=== PATIENT | male | born 1945 | race Two or more races ===

== ENCOUNTER 2025-01-31 22:12 | Emergency (ER) | payer OTHER, SELFPAY ==
--- NOTE | ~2025-01-31 | XR_ITS ---
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 Lateral clavicle deformity appears old. [id number] osteoarthritis of the right glenohumeral joint without dislocation. Inferior glenoid irregularities with small osteophytes. Small Hill-Sachs deformity of the imaged humerus of the adjacent subchondral cystic changes. Atelectasis in the [id number]-[id number]. Small effusion suggested. IMPRESSION: 1. No acute fracture or dislocation. 2. 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 3. 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 This document has been electronically signed by: Nick Wong MD on 02/01/2025 00:14:32
--- NOTE | 2025-01-31 22:25 | ED_ITS ---
HPI - Fall General Chief Complaint: Fall Stated Complaint: FALL, -THIN, LOC, HS, +COLLAR PER EMS Time Seen by Provider: 01/31/25 22:20 Source: patient Mode of arrival: ambulatory Limitations: no limitations History of Present Illness ED Provider: HPI Narrative: Apparently [place] the [place] stumble on rocks fell landed on his left knee and chest no significant head injury no loss of consciousness patient walked to the fire station and came by ambulance y,ambulatory as with small abrasion to the left knee does have a chronic shoulder pain Related Data Allergies Allergy/AdvReac Type Severity Reaction Status Date / Time Penicillins Allergy Rash Verified 01/31/25 22:52 Review of Systems Review of Systems: Yes all other systems are reviewed and are negative [facility], [facility] Social History Social History Smoked in Last 30 Days: No Use of substances other than those prescribed or required for medical reasons: No Advance Directives: No Advance Directives Information Provided: Yes Do you have a plan to hurt others: No Plan Physical Exam Vital Signs: Vital Signs: Last Vital Signs Temp 98.0 F 01/31/25 23:52 Pulse 73 01/31/25 23:52 Resp 18 01/31/25 23:52 BP 142/71 H 01/31/25 23:52 Pulse Ox 95 01/31/25 23:52 O2 Del Method Room Air 01/31/25 23:52 BMI result Body Mass Index 26.3 Appearance: Alert. Oriented X3. No acute distress. Eyes: PERRLA, No Nystagmus ENT: Pharynx normal. Oral Mucosa moist Neck: Normal inspection. Neck supple. No midline tenderness CVS: Normal heart rate and rhythm. Pulses normal. Respiratory: No respiratory distress. Equal air entry bilateral, no wheezing/rales/rhonchi Abdomen: Soft and nontender. Bowel sounds are present, no mass palpable, no CVA tenderness Skin: Skin warm and dry. Normal skin color. Normal skin turgor. Extremities: No lower extremity edema. No calf tenderness right shoulder limited abduction and external rotation no deformity neurovascular intact left knee superficial abrasion no effusion good range of movement Neuro: Oriented X 3. No motor deficit. No sensory deficit.No cerebellar signs , cranial nerves II-XII intact Medications Administered Discontinued Medications Generic Name Dose Route Start Last Admin Trade Name Freq PRN Reason Stop Dose Admin Bacitracin 1 appl 01/31/25 22:27 01/31/25 22:51 Bacitracin Oint 0.9 Gm Packet TOPICAL 01/31/25 22:28 1 appl ONCE ONE Administration Protocol Medical Decision Making Medical Decision Making MDM Narrative: patient no significant injury ambulatory in the ED will discharge patient home shoulder x-ray was done which was negative Independent Interpretation I performed an independent interpretation of an: Plain X-Ray Interpretation: no fracture Discharge Plan Discharge Clinical Impression: Fall Patient Disposition: Home, Self-Care Instructions: Fall Prevention for Older Adults (ED) Additional Instructions: Care and cautions as advised Interventions: ED Discharge Assessment Last Done: 01/31/25 23:52 Discharge Date/Time: 01/31/25 23:54 Print Language: Yoruba
[2025-01-31 22:28] VITALS: BP 150/80; PULSE 85; O2SAT 100
[2025-01-31 22:51] VITALS: BP 128/68; PULSE 76; RESP 18; TEMP 37.1; O2SAT 98; BMI 26.3
[2025-01-31] MEDS: Bacitracin Oint 0.9 GM PACKET 1 APPL TOPICAL (22:51)
--- NOTE | 2025-01-31 22:59 | PC.NURSE ---
pt brought in via ems s/p fall- pt cleared from c-collar by MD Nathan on arrival, abrasions on leftknee and ankle cleasned with NS- patted dry, followed by bacitracin, nonstick, kerlix and tape. pt awaiting XR results of right shoulder- call pak within reach
--- OUTSIDE RECORDS SUMMARY | 2025-01-31 23:28 | XMS_ITS | Encounter Summary ---
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 Name Role Phone Ewelina Hargrove PA-C Primary Care Provider Reason for Visit * Reason Comments Correspondence Encounter Details Date Type Department Care Team (Late st Contact Info) Description 08/01/2023 Interim Notes [facility] [address] [place] [phone] [facility] [place], [place] [address] [place] [address] Social History Tobacco Use Types Packs/Day Years Used Date Smoking Tobacco: Never Smokeless Tobacco: Never Alcohol Use Standard Drinks/Week Comments No 0 (1 standard drink = 0.6 oz pur e alcohol) Social Connections Answer Date Recorded Social Connections and Isolation 0 07/13/2019 Financial Resource Strain Answer Date R ecorded Financial Resource Strain 0 2018 Stress Answer Date Recorded Stress 0 07/13/2019 Physical Activity Answer Date Recorded Physical Activity 0 07/13/2019 Food Insecurity Answer Date Recorded Food 0 07/13/2019 Transportation Needs Answer Date Record ed Transportation 0 07/13/2019 Housing Stability Answer Date Recorded Housing 0 07/13/2019 Safety and Environment Answer Date Claude rded Safety 0 07/13/2019 Utilities Answer Date Recorded Utilities 0 07/13/2019 Employment Answer Date Recorded Employment 0 07/13/2019 Sex and Gender Information Value Date Recorded Sex Assigned at Male 01/07/2018 7:11 AM PST Legal Sex Male 8:29 AM PDT Gender Identity Male 01/07/2018 7:11 AM PST Sexual Orientation Straight 06/02/2018 6: 01 AM PDT COVID-19 Exposure Response Date Recorded In the last 10 days, have cr u been in contact with someone who was confirmed or suspected to have Coronavirus/COVID-19? No / Unsure 07/30/2023 3:51 PM EDT documented as of this encounter Plan of Treatment Upcoming Encounters Date Type Department Care Team (Late st Contact Info) Description 02/01/2025 10:00 AM EDT Telemedicine Visit [facility] [address] [place] [phone] Ewelina Hargrove PA-C [address] [place] [address] Jael Bee [address] [place] [address] documented as of this encounter Goals Goal Patient Goal Type Associated Problems Recent Progress Patient-Stated? Author Blood Pressure < 130/80 Blood Pressure Essential hypertension 126/62(2024 11:16 AM EST) No Gricelda Arredondo, PharmD documented as of this encounter Visit Diagnoses Not on filedocumented in this encounter Additional Health Concerns Assessment Noted Time PHQ-9 Depression Total Score: 14 023 4:13 PM PDT documented as of this encounter Care Teams Wood [employer] Relationship Specialty Start Date End Date Ewelina Hargrove PA-C [facility] [place] [address] PCP - General Primary Care 06/01/24 documented as of this encounter
--- OUTSIDE RECORDS SUMMARY | 2025-01-31 23:29 | XMS_ITS | Clinical Summary ---
Author Organization [facility] Address [address] [place] [address] Phone Care Team Providers Care Electrical Engineer Mep Name Role Phone Cristina Gold Primary Care Provider [phone] Allergies Active Allergy Reactions Criticality Noted Date Comments Penicillin Unknown 09/26/2023 Penicillin G 10/13/2024 Penicillins Anaphylaxis,Itching High 06/19/2016 Medications No known medications Encounters Date Type Department Care Team Description 01/09/2025 10:44 AM EST - 01/09/2025 2:35 PM EST Emergency [facility] [address] [place] [phone] Chronic right shoulder pain (Primary Dx) Discharge Disposition: Home or Self Care 01/07/2025 9:45 AM EST Office Visit Orthopedic Surgery [facility] [address] [facility] [address] [place] [phone] Charlie Samuels, DPM Dermatophytosis of nail (Primary Dx); Wheezing; Bilateral foot pain; Pain in toe of right foot; Pain in toe of left foot; 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); Diabetic mononeuropathy simplex (CMS/HCC); Metatarsalgia of both feet; Hammer toe of left foot; Acquired hammer toe of right foot; Primary osteoarthritis of both feet 12/19/2024 8:28 AM EST - 12/19/2024 10:51 AM EST Emergency [facility] [address] [place] [phone] Bang Perkins MD Vertigo (Primary Dx) Discharge Disposition: Home or Self Care 12/11/2024 6:00 PM EST - 12/11/2024 9:02 PM EST Emergency [facility] [address] [place] [phone] Dizziness (Primary Dx) Discharge Disposition: Home or Self Care from Last 3 Months Surgical History Surgery Date Site/Laterality Comments NECK SURGERY Medical History Medical History Date Comments Depression Hypertension Diabetes mellitus ([facility]) Social History Tobacco Use Types Packs/Day Years Used Date Smoking Tobacco: Never Smokeless Tobacco: Never Tobacco Cessation:Counseling Given: Not Answered Alcohol Use Standard Drinks/Week Comments Never 0 (1 standard drink = 0.6 oz pur e alcohol) Sex and Gender Information Value Date Recorded Sex Assigned at Male 12/11/2024 6:50 PM EST Legal Sex Male 11:06 PM EST Gender Identity Male 12/11/2024 6:50 PM EST Sexual Orientation Not on file Obstetrics History Last Filed Vital Signs Vital Sign Reading Time Taken Comments Blood Pressure 126/74 01/09/2025 10:20 AM EST Pulse 78 01/09/2025 10:20 AM EST Temperature 36.6 ??C (97.9 ??F) 01/09/2025 10:[address] Respiratory Rate 16 01/09/2025 10:20 AM EST Oxygen Saturation 94% 01/09/2025 10:20 AM EST Inhaled Oxygen Concentration - - Weight 75.8 kg (167 lb) 01/09/2025 10:20 AM EST Height 165.1 cm (5' 5 ) 01/09/2025 10:20 AM EST Body Mass Index 27.79 01/09/2025 10:20 AM EST Plan of Treatment Upcoming Encounters Date Type Department Care Team (Late st Contact Info) Description 04/06/2025 9:45 AM EDT Office Visit Orthopedic Surgery - [place] [address] [phone] Charlie Samuels, DPM [address] [address] Health Maintenance Due Date Last Done Comments Diabetes: Annual Foot Exam 1955 Diabetes: Annual Retina Eye Exam 1955 Falls Risk Assessment 10/28/2022 Hepatitis C Screening 10/28/2022 Medicare Annual Wellness Visit 10/28/2022 Social Influencers of Health Screening 10/28/2022 RSV Immunization Patients 60+ Years Old (1 - 1-dose 75+ series) 2022 COVID-19 Vaccine (3 - season) 2024 03/04/2021, 01/28/2021 Diabetes: Annual Urine Albumin-Creatinine Ratio (uACR) 10/13/2024 09/26/2023, 02/09/2021, 07/04/2020 Zoster Vaccines (2 of 2) 01/19/2025 11/24/2024 Depression Screening 04/02/2025 04/02/2024 Diabetes: Blood Sugar Control Test (HGBA1C) 05/24/2025 11/24/2024, 04/02/2024 Diabetes: Annual GFR (Glomerular Filtration Rate) 12/19/2025 12/19/2024, 12/11/2024, 11/24/2024, Additional history exists Hypertension/CHF/CAD Annual BMP Blood Test 12/19/2025 12/19/2024, 12/11/2024, 11/24/2024, Additional history exists Cholesterol Screening (Lipid Panel) 11/24/2029 11/24/2024, 11/24/2024, 09/26/2023, Additional history exists DTaP,Tdap,and Td Vaccines (3 - Td or Tdap) 07/20/2033 07/20/2023, 02/19/2017 Pneumococcal Vaccine: 50+ Years Completed 04/30/2018, 02/19/2017, 09/10/2006 Influenza Vaccine Completed 11/24/2024, , 11/01/2017 HIB Vaccines Aged Out No longer eligi ble based on patient's age to complete this topic HPV Vaccines Aged Out No longer eligi ble based on patient's age to complete this topic Hepatitis A Vaccines Aged Out No long er eligible based on patient's age to complete this topic Hepatitis B Vaccines Aged Out No long er eligible based on patient's age to complete this topic IPV Vaccines Aged Out No longer eligi ble based on patient's age to complete this topic MMR Vaccines Aged Out No longer eligi ble based on patient's age to complete this topic Meningococcal ACWY Vaccine Aged Out N o longer eligible based on patient's age to complete this topic Meningococcal B Vacine Aged Out No lo nger eligible based on patient's age to complete this topic RSV Immunization Patients Under 20 months Aged Out No longer eligible based on patient's age to complete this topic Varicella Vaccines Aged Out No longer eligible based on patient's age to complete this topic Procedures Procedure Name Priority Date/Time Associated Diagnosis Comments ECG ANNOTATED 01/11/2025 ECG 12-LEAD STAT 01/09/2025 12:22 PM EST XR SHOULDER 2+ VIEWS RIGHT STAT 01/09/2025 11:36 AM EST XR CHEST 2 VIEWS STAT 01/09/2025 11:3 6 AM EST [id number], RSV, FLU A AND B QUALITATIVE RT-PCR, INTERNAL LAB STAT 01/09/2025 11:16 AM EST CBC WITH AUTO DIFFERENTIAL STAT 12/19/2024 4:28 AM EST LIPASE STAT 12/19/2024 4:28 AM EST COMPREHENSIVE METABOLIC PANEL STAT 12/19/2024 4:28 AM EST CBC AND DIFFERENTIAL STAT 12/19/2024 4:28 AM EST TROPONIN I HIGH SENSITIVITY STAT 12/11/2024 8:[address] HEAD WO CONTRAST STAT 12/11/2024 7 :16 PM EST TROPONIN I HIGH SENSITIVITY STAT 12/11/2024 6:40 PM EST CBC WITH AUTO DIFFERENTIAL STAT 12/11/2024 6:40 PM EST MAGNESIUM STAT 12/11/2024 6:40 PM EST BASIC METABOLIC PANEL STAT 12/11/2024 6:40 PM EST CBC AND DIFFERENTIAL STAT 12/11/2024 6:40 PM EST ECG 12-LEAD STAT 12/11/2024 4:54 PM EST POCT GLUCOSE BLOOD Routine 12/11/2024 4: 40 PM EST ECG ANNOTATED 12/11/2024 from Last 3 Months Results * ECG-Annotated (01/11/2025) Only the most recent of2 resultswithin the time period is included. us Provider Onbase MD ECG ORDERABLES Final Result * ECG 12 lead (01/09/2025 12:22 PM EST) Only the most recent of2 resultswithin the time period is included. Ventricular Rate ECG 66 BPM GEMUSE Atrial Rate 66 BPM GEMUSE P-R Interval 164 ms GEMUSE QRS Duration 82 ms GEMUSE Q-T Interval 400 ms GEMUSE QTc 419 ms GEMUSE P Wave [place] 66 degrees GEMUSE R [place] 57 degrees GEMUSE T [place] 52 degrees GEMUSE ECG Interpretation Normal sinus rhythm Normal ECG When compared with ECG of 11-DEC-2024 16:54, No significant change was found Confirmed by SHELDON CORONADO ([id number]) on 01/10/2025 6:14:56 PM GEMUSE 01/09/2025 12:2 2 PM EST 01/10/2025 6:14 PM EST us Bhavani KRUSE ECG ORDERABLES Final Re sult GEMUSE * XR Shoulder 2+ Views Right (01/09/2025 11:36 AM EST) Anatomical Region Laterality Modality Upper Extremities, Shoulder Right Radi ographic Imaging 01/09/2025 12:2 0 PM EST Impressions 01/09/2025 12:21 PM EST FINDINGS/IMPRESSION: Significant degenerative changes of the glenohumeral and acromioclavicular joint. ??No acute fracture or dislocation. ??Possible prior Hill-Sachs deformity and irregularity of the inferior glenoid. -------- FINAL REPORT -------- Dictated By: Cruz Edmondson Dictated Date: 01/09/2025 12:20 ET Assigned Physician: Cruz Edmondson Reviewed and Electronically Signed By: Cruz Edmondson Signed Date: 01/09/2025 12:21 ET Workstation ID: [id number] Transcribed By: Self Edit Transcribed Date: 01/09/2025 12:20 ET Narrative 01/09/2025 12:21 PM EST XR SHOULDER 2+ VIEWS RIGHT INDICATION: pain TECHNIQUE: XR SHOULDER 2+ VIEWS RIGHT COMPARISON: No priors available. Procedure Note Cruz Edmondson MD - 01/09/2025 XR SHOULDER 2+ VIEWS RIGHT INDICATION: pain TECHNIQUE: XR SHOULDER 2+ VIEWS RIGHT COMPARISON: No priors available. IMPRESSION: FINDINGS/IMPRESSION: Significant degenerative changes of the glenohumeraland acromioclavicular joint. No acute fracture or dislocation. Possibleprior Hill- Sachs deformity and irregularity of the inferior glenoid. -------- FINAL REPORT -------- Dictated By: Cruz Edmondson Dictated Date: 01/09/2025 12:20 ET Assigned Physician: Cruz Edmondson Reviewed and Electronically Signed By: Cruz Edmondson Signed Date: 01/09/2025 12:21 ET Workstation ID: [id number] Transcribed By: Self Edit Transcribed Date: 01/09/2025 12:20 ET us Bhavani KRUSE IMG XR PROCEDURES Final Result * XR Chest 2 Views (01/09/2025 11:36 AM EST) Anatomical Region Laterality Modality Body Radiographic Naida ging 01/09/2025 12:1 7 PM EST Impressions 01/09/2025 12:18 PM EST FINDINGS/IMPRESSION: No significant change compared to prior examination. Normal heart size and pulmonary vascularity. ??Lungs are clear and costophrenic angles are sharp. ??No acute osseous abnormality.. -------- FINAL REPORT -------- Dictated By: Cruz Edmondson Dictated Date: 01/09/2025 12:17 ET Assigned Physician: Cruz Edmondson Reviewed and Electronically Signed By: Cruz Edmondson Signed Date: 01/09/2025 12:18 ET Workstation ID: [id number] Transcribed By: Self Edit Transcribed Date: 01/09/2025 12:17 ET Narrative 01/09/2025 12:18 PM EST XR CHEST 2 VIEWS INDICATION: wheezing TECHNIQUE: XR CHEST 2 VIEWS COMPARISON: No priors available. Procedure Note Cruz Edmondson MD - 01/09/2025 XR CHEST 2 VIEWS INDICATION: wheezing TECHNIQUE: XR CHEST 2 VIEWS COMPARISON: No priors available. IMPRESSION: FINDINGS/IMPRESSION: No significant change compared to priorexamination. Normal heart size and pulmonary vascularity. Lungs are clear andcostophrenic angles are sharp. No acute osseous abnormality.. -------- FINAL REPORT -------- Dictated By: Cruz Edmondson Dictated Date: 01/09/2025 12:17 ET Assigned Physician: Cruz Edmondson Reviewed and Electronically Signed By: Crzu Edmondson Signed Date: 01/09/2025 12:18 ET Workstation ID: [id number] Transcribed By: Self Edit Transcribed Date: 01/09/2025 12:17 ET Bhavani KRUSE IMG XR PROCEDURES Final Result * [id number], RSV, Influenza A and B qualitative RT-PCR (01/09/2025 11:16 AM EST) Influenza A PCR Not Detected Not Detected LAB MICROBIOLOGY METHOD 01/09/2025 12:11 PM EST [facility] Influenza B PCR Not Detected Not Detected LAB MICROBIOLOGY METHOD 01/09/2025 12:11 PM EST [facility] RSV PCR Not Detected Not Detected LAB MICROBIOLOGY METHOD 01/09/2025 12:11 PM EST [facility] SARS COV-2 Not Detected Not Detected LAB MICROBIOLOGY METHOD 01/09/2025 12:11 PM EST [facility] Swab Both anterior nares / Unknown Non-blood Collection / Unknown 01/09/2025 11:16 AM EST 01/09/2025 11:30 AM EST [facility]ative [facility] - 01/09/2025 12:11 PM EST Disclaimer: ??Testing was performed using the Symphony GeneXpert Xpress SARS-CoV-2 _Flu_RSV PLUS PCR assay. ??The manner in which this information is used to guide patient care is the responsibility of the healthcare provider. ??Results should be correlated with the clinical history, epidemiological data, and other data available to the clinician evaluating the patient. ??Negative results do not preclude infection. ??This test has been authorized by the FDA under an Emergency Use Authorization (EUA). ??This test is only authorized for the duration of time the declaration that circumstances exist justifying the authorization of the emergency use of in vitro diagnostic tests for detection of SARS-CoV-2 virus and/or diagnosis of COVID-19 infection under section 564 (b) (1) of the Act, 21 U.S.C 360bbb-3 (b) (1), unless the authorization is terminated or revoked sooner. ?? Reference Range: Not Detected Fact sheet for Healthcare providers can be found at https://www.fda.gov/media/670462/download. ?? Fact sheet for Healthcare patients can be found at https://www.fda.gov/media/863313/download. us Bhavani KRUSE LAB MICROBIOLOGY - GENER AL ORDERABLES Final Result [facility] [address] [place] [address], * (ABNORMAL) CBC auto differential (12/19/2024 4:28 AM EST) Only the most recent of2 resultswithin the time period is included. Pathologist [facility] WBC 6.5 4.8 - 10.8 K/mcL LAB HEMETOLOGY METHOD 12/19/2024 4:39 AM [facility] RBC 4.60 4.50 - 5.50 M/mcL LAB HEMETOLOGY METHOD 12/19/2024 4:39 AM [facility] Hemoglobin 12.4(L) 13.5 - 17.5 g/dL LAB HEMETOLOGY METHOD 12/19/2024 4:39 AM [facility] Hematocrit 39.9(L) 42.0 - 54.0 % LAB HEMETOLOGY METHOD 12/19/2024 4:39 AM [facility] MCV 86.4 79.0 - 98.0 FL LAB HEMETOLOGY METHOD 12/19/2024 4:39 AM [facility] MCH 26.8(L) 27.0 - 32.0 pcg LAB HEMETOLOGY METHOD 12/19/2024 4:39 AM [facility] MCHC 31.1(L) 32.0 - 37.0 g/dL LAB HEMETOLOGY METHOD 12/19/2024 4:39 AM [facility] RDW 12.8 11.0 - 15.0 % LAB HEMETOLOGY METHOD 12/19/2024 4:39 AM [facility] Platelets 296 130 - 400 K/mcL LAB HEMETOLOGY METHOD 12/19/2024 4:39 AM [facility] MPV 8.6 7.0 - 11.0 FL LAB HEMETOLOGY METHOD 12/19/2024 4:39 AM [facility] NRBC 0.0 <1.0 % LAB HEMETOLOGY METHOD 12/19/2024 4:39 AM [facility] NRBC Absolute 0.00 <0.10 K/mcL LAB HEMETOLOGY METHOD 12/19/2024 4:39 AM [facility] Neutrophils Relative 73.5 % LAB HEMETOLOGY METHOD 12/19/2024 4:39 AM [facility] Lymphocytes Relative 15.7 % LAB HEMETOLOGY METHOD 12/19/2024 4:39 AM [facility] Monocytes Relative 6.5 % LAB HEMETOLOGY METHOD 12/19/2024 4:39 AM [facility] Eosinophils Relative 3.4 % LAB HEMETOLOGY METHOD 12/19/2024 4:39 AM [facility] Basophils Relative 0.6 % LAB HEMETOLOGY METHOD 12/19/2024 4:39 AM [facility] Immature Granulocytes Relative 0.3 % LAB HEMETOLOGY METHOD 12/19/2024 4:39 AM [facility] Neutrophils Absolute 4.78 1.50 - 7.00 K/mcL LAB HEMETOLOGY METHOD 12/19/2024 4:39 AM [facility] Lymphocytes Absolute 1.02 1.00 - 5.00 K/mcL LAB HEMETOLOGY METHOD 12/19/2024 4:39 AM [facility] Monocytes Absolute 0.42 0.20 - 1.00 K/mcL LAB HEMETOLOGY METHOD 12/19/2024 4:39 AM [facility] Eosinophils Absolute 0.22 0.00 - 0.50 K/mcL LAB HEMETOLOGY METHOD 12/19/2024 4:39 AM [facility] Basophils Absolute 0.04 0.00 - 0.20 K/mcL LAB HEMETOLOGY METHOD 12/19/2024 4:39 AM [facility] Immature Granulocytes Absolute 0.02 0.00 - 0.03 K/mcL LAB HEMETOLOGY METHOD 12/19/2024 4:39 AM [facility] Blood Venous blood specimen / Unknown Venipuncture / Unknown 12/19/2024 4:28 AM EST 12/19/2024 4:33 AM EST Pam Bay MD LAB BLOOD ORDERABLES Fin al Result Performing Organization Address City/[facility]/ZIP Co de Phone Number [facility] [address] [place] [address], [place] [phone] * Lipase (12/19/2024 4:28 AM EST) Lipase 37 13 - 75 unit/L LAB CHEMISTRY METHOD 12/19/2024 5:08 AM [facility] Blood Venous blood specimen / Unknown Venipuncture / Unknown 12/19/2024 4:28 AM EST 12/19/2024 4:33 AM EST Pam Bay MD LAB BLOOD ORDERABLES Fin al Result Performing Organization Address [facility] Co de Phone Number [facility] [address] [place] [address], [place] [phone] * (ABNORMAL) Comprehensive metabolic panel (12/19/2024 4:28 AM EST) Pathologist [facility] Sodium 137 133 - 145 mmol/L LAB CHEMISTRY METHOD 12/19/2024 5:08 AM [facility] Potassium 3.6 3.5 - 5.5 mmol/L LAB CHEMISTRY METHOD 12/19/2024 5:08 AM [facility] Chloride 104 96 - 110 mmol/L LAB CHEMISTRY METHOD 12/19/2024 5:08 AM [facility] CO2 28 21 - 32 mmol/L LAB CHEMISTRY METHOD 12/19/2024 5:08 AM [facility] Anion Gap 5 3 - 11 LAB CHEMISTRY METHOD 12/19/2024 5:08 AM [facility] Glucose 153(H) 70 - 100 mg/dL LAB CHEMISTRY METHOD 12/19/2024 5:08 AM [facility] BUN 12 5 - 25 mg/dL LAB CHEMISTRY METHOD 12/19/2024 5:08 AM [facility] Creatinine 0.68(L) 0.70 - 1.30 mg/dL LAB CHEMISTRY METHOD 12/19/2024 5:08 AM [facility] eGFR 96 >=60 mL/min/1. 73m2 LAB CHEMISTRY METHOD 12/19/2024 5:08 AM [facility] Comment:Calculation based on the??Chronic Kidney Disease Epidemiology Collaboration (CKD-EPI) equation refit??without adjustment for race. BUN/Creatinine Ratio 17.6 LAB CHEMISTRY METHOD 12/19/2024 5:08 AM [facility] Calcium 9.0 8.5 - 10.5 mg/dL LAB CHEMISTRY METHOD 12/19/2024 5:08 AM [facility] AST (SGOT) 13 10 - 42 unit/L LAB CHEMISTRY METHOD 12/19/2024 5:08 AM [facility] ALT (SGPT) 16 10 - 60 unit/L LAB CHEMISTRY METHOD 12/19/2024 5:08 AM [facility] Alkaline Phosphatase 125(H) 42 - 121 unit/L LAB CHEMISTRY METHOD 12/19/2024 5:08 AM [facility] Total Protein 7.5 6.0 - 8.0 g/dL LAB CHEMISTRY METHOD 12/19/2024 5:08 AM [facility] Albumin 3.9 3.2 - 5.0 g/dL LAB CHEMISTRY METHOD 12/19/2024 5:08 AM [facility] Total Bilirubin 1.2 0.0 - 1.4 mg/dL LAB CHEMISTRY METHOD 12/19/2024 5:08 AM [facility] Blood Venous blood specimen / Unknown Venipuncture / Unknown 12/19/2024 4:28 AM EST 12/19/2024 4:33 AM EST us Pam Bay MD LAB BLOOD ORDERABLES Fin al Result [facility] [address] [place] [address], [place] [phone] * Troponin I high sensitivity (12/11/2024 8:03 PM EST) Only the most recent of2 resultswithin the time period is included. High Sensitivity Troponin I 43 <=79 ng/L LAB CHEMISTRY METHOD 12/11/2024 8:52 PM EST [facility] Blood Venous blood specimen / Unknown Venipuncture / Unknown 12/11/2024 8:03 PM EST 12/11/2024 8:19 PM EST Narrative [facility] - 12/11/2024 8:52 PM EST High levels of biotin in samples may falsely decrease hsTroponin values. ??Use caution when interpreting hsTroponin results in patients taking biotin who exhibit renal impairment (eGFR <60) or in patients taking more than 20 mg/day of biotin. Darshan KRUSE LAB BLOOD ORDERABLES Final R esult Performing Organization Address [facility] Co de Phone Number [facility] [address] [place] [address], [place] [phone] * CT Head wo Contrast (12/11/2024 7:16 PM EST) Anatomical Region Laterality Modality Head and Neck Computed Tomogra phy 12/11/2024 7:39 PM EST Impressions 12/11/2024 7:39 PM EST Impression: 1. No acute intracranial abnormalities. This document has been electronically signed by: Miles Brooks MD on 12/11/2024 19:39:05 Narrative 12/11/2024 7:[address] head without contrast Comparison: None Findings: No intracranial mass, midline shift, hydrocephalus, or acute hemorrhage. No CT evidence of acute ischemia. Minimal chronic microangiopathic white matter ischemic changes are present. Visualized paranasal sinuses and mastoid air cells normal. Orbits unremarkable. No skull fracture Procedure Note Miles Brooks MD - 12/11/2024 CT head without contrast Comparison: None Findings: No intracranial mass, midline shift, hydrocephalus, or acute hemorrhage. No CT evidence of acute ischemia. Minimal chronic microangiopathic white matter ischemic changes are present. Visualized paranasal sinuses and mastoid air cells normal. Orbits unremarkable. No skull fracture IMPRESSION: Impression: 1. No acute intracranial abnormalities. This document has been electronically signed by: Miles Brooks MD on 12/11/2024 19:39:[address] PROCEDURES Final Resu lt * Magnesium (12/11/2024 6:40 PM EST) Pathologist [facility] Magnesium 2.1 1.9 - 2.6 mg/dL LAB CHEMISTRY METHOD 12/11/2024 7:36 PM EST [facility] Blood Venous blood specimen / Unknown Venipuncture / Unknown 12/11/2024 6:40 PM EST 12/11/2024 7:00 PM EST Thompson Stein DO LAB BLOOD ORDERABLES Final Resu lt [facility] [address] [place] [address], * (ABNORMAL) Basic metabolic panel (12/11/2024 6:40 PM EST) Pathologist [facility] Sodium 140 133 - 145 mmol/L LAB CHEMISTRY METHOD 12/11/2024 7:36 PM EST [facility] Potassium 4.0 3.5 - 5.5 mmol/L LAB CHEMISTRY METHOD 12/11/2024 7:36 PM EST [facility] Chloride 106 96 - 110 mmol/L LAB CHEMISTRY METHOD 12/11/2024 7:36 PM EST [facility] CO2 30 21 - 32 mmol/L LAB CHEMISTRY METHOD 12/11/2024 7:36 PM EST [facility] Anion Gap 4 3 - 11 LAB CHEMISTRY METHOD 12/11/2024 7:36 PM EST [facility] Glucose 103(H) 70 - 100 mg/dL LAB CHEMISTRY METHOD 12/11/2024 7:36 PM EST [facility] BUN 15 5 - 25 mg/dL LAB CHEMISTRY METHOD 12/11/2024 7:36 PM [facility] Creatinine 0.66(L) 0.70 - 1.30 mg/dL LAB CHEMISTRY METHOD 12/11/2024 7:36 PM EST [facility] eGFR 97 >=60 mL/min/1. 73m2 LAB CHEMISTRY METHOD 12/11/2024 7:36 PM [facility] Comment:Calculation based on the??Chronic Kidney Disease Epidemiology Collaboration (CKD-EPI) equation refit??without adjustment for race. BUN/Creatinine Ratio 22.7 LAB CHEMISTRY METHOD 12/11/2024 7:36 PM [facility] Calcium 9.5 8.5 - 10.5 mg/dL LAB CHEMISTRY METHOD 12/11/2024 7:36 PM [facility] Blood Venous blood specimen / Unknown Venipuncture / Unknown 12/11/2024 6:40 PM EST 12/11/2024 7:00 PM EST Thompson Stein DO LAB BLOOD ORDERABLES Final Resu lt [facility] [address] [place] [address], * (ABNORMAL) POCT Glucose, blood (12/11/2024 4:40 PM EST) Glucose POCT 107(H) 70 - 100 mg/dL 12/11/2024 4:41 PM EST [facility] Blood Capillary blood specimen / Unknown 12/11/2024 4:40 PM EST 12/11/2024 4:42 PM EST us Generic Provider Poct LAB POINT OF CARE TEST DOCKED DEVICE UNSOLICITED RESULTS Final Result [facility] [address] [place] [address], from Last 3 Months Insurance [facility] MEDICARE Member Subscriber Plan / Payer (Ef fective 2022-Present) Name:Barak Giordano Relation to Subscriber:Self Name:Barak Giordano Payer ID:[id number] Group ID:[id number] Type:Not on file [address] [address] Care Teams Electrical Engineer Mep Relationship Specialty Start Date End Date Cristina Gold FNP [address] [place] [phone] PCP - General Internal Medicine 05/08/22
--- OUTSIDE RECORDS SUMMARY | 2025-01-31 23:29 | XMS_ITS | Encounter Summary ---
Author Organization [facility] Address [address] [place] [address] Care Team Providers Care [employer] Name Role Phone Ewelina Hargrove PA-C Primary Care Provider [phone] Reason for Referral * Orthopedics (Urgent) - Authorized Specialty Diagnoses / Procedures Referred By Yolanda t Referred To Contact Orthopedics Diagnoses Acute pain of both knees Vika Ash FNP [address] [place] [phone] Phone: tel: fax: Orthopedics, [place] [address] [address] [place], [place] Phone: tel: fax: Referral ID Status Reason Start Date Expiration Date Visits Requested Visits Authorized [id number] Authorized Evaluate and Treat 01/28/2025 01/28/2026 1 1 Comments Evaluation of subacute right knee effusion, exacerbation after fall. Seeking walk in clinic Valdemar Velasquez Reason for Visit * Reason Comments Leg Pain Foot Pain Encounter Details Date Type Department Care Team (Late st Contact Info) Description 01/28/2025 11:00 AM EST Office Visit [facility] [address] [place] [address] Vika Ash FNP [address] [place] [address] Clau Castano [address] [place] [address] Acute pain of both knees (Primary Dx); Fall, initial encounter Social History Tobacco Use Types Packs/Day Years Used Date Smoking Tobacco: Never Smokeless Tobacco: Never Tobacco Cessation:Counseling Given: Not Answered Alcohol Use Standard Drinks/Week Comments No 0 (1 standard drink = 0.6 oz pur e alcohol) Social Connections Answer Date Recorded Connectedness 0 08/12/2024 Financial Resource Strain Answer Date R ecorded Financial Resource Strain 0 2018 Stress Answer Date Recorded Stress 0 07/13/2019 Physical Activity Answer Date Recorded Physical Activity 0 07/13/2019 Food Insecurity Answer Date Recorded Food 0 08/20/2024 Transportation Needs Answer Date Record ed Transportation 0 07/13/2019 Housing Stability Answer Date Recorded Housing 0 07/13/2019 Safety and Environment Answer Date Claude rded Safety 0 07/13/2019 Utilities Answer Date Recorded Utilities 0 07/13/2019 Employment Answer Date Recorded Stress 0 08/12/2024 Sex and Gender Information Value Date Recorded Sex Assigned at Male 01/07/2018 7:11 AM PST Legal Sex Male 8:29 AM PDT Gender Identity Male 01/07/2018 7:11 AM PST Sexual Orientation Straight 06/02/2018 6: 01 AM PDT documented as of this encounter Last Filed Vital Signs Vital Sign Reading Time Taken Comments Blood Pressure 126/62 01/28/2025 11:16 AM EST Pulse 71 01/28/2025 11:16 AM EST Temperature 36.8 ??C (98.3 ??F) 01/28/2025 11:[address] Respiratory Rate 16 01/28/2025 11:16 AM EST Oxygen Saturation 98% 01/28/2025 11:16 AM EST Inhaled Oxygen Concentration - - Weight 72.6 kg (160 lb) 01/28/2025 11:16 AM EST Height 157.5 cm (5' 2 ) 01/28/2025 11:16 AM EST Body Mass Index 29.26 01/28/2025 11:16 AM EST documented in this encounter Progress Notes * CRUZ Workman - 01/28/2025 11:29 AM EST Images from the original note were not included. CC: Leg Pain and Foot Pain Interpreting services by Clau Castano ([place]yan) interpreted for today's visit. were utilized during this visit. Interpreting service provided in person. HPI Barak Giordano presents today for Leg Pain and Foot Pain Accompanied by his LOCKSTITCHER He reports fall last week on the side walk after tripping on the stone, landing on bilateral knees.Reports dizziness p/t fall as well. States dizziness is chronic and had full negative work up. He reports pain, swelling and abrasion to his knees. He denies head strike or LOC. Shares swelling to right knee is chronic X 1 month but increased after the fall. He was otherwise asymptomatic at time offall. Now with trouble with ambulation, painful and limping. REVIEW OF SYSTEMS: Remainder ROS: See HPI, systems reviewed and are otherwise negative or noncontributory. Allergies Allergen Reactions Penicillins Anaphylaxis Patient Active Problem List Diagnosis Chronic right shoulder pain H/O: gout Essential hypertension DM (diabetes mellitus), type 2 with neurological complications ([facility]) Onychomycosis Corneal abrasion, left Psychophysiological insomnia Mixed hyperlipidemia Closed nondisplaced fracture of left great toe with routine healing Mild persistent asthma without complication Moderate major depression, single episode ([facility]) Heel spur Intermittent chest pain Intermittent headache B12 deficiency H/O complete eye exam Podiatry visit, routine Peripheral neuropathy Current Outpatient Medications Medication Sig Dispense Refill DAILY-TRACY, WITH FOLIC ACID, 400 mcg tab TAKE 1 TABLET BY MOUTH ONCE DAILY 90 Tablet 3 acetaminophen (TYLENOL) 500 mg tablet TAKE 1 TABLET BY MOUTH EVERY 6 HOURS NEEDED FOR PAIN 120 Tablet 0 amLODIPine (NORVASC) 10 mg tablet Take 1 Tablet by mouth once daily 90 Tablet 1 atorvastatin (LIPITOR) 20 mg tablet Take 1 Tablet by mouth once daily 90 Tablet 1 carbamide peroxide (DEBROX) 6.5 % otic solution Place 10 Drops into the right ear 2 (two) times daily 15 mL 0 metFORMIN XR (GLUCOPHAGE-XR) 500 mg 24 hr tablet Take 2 Tablets by mouth once daily with breakfast 180 Tablet 1 MISCELLANEOUS MEDICAL SUPPLY [facility] by miscellaneous route daily. Rolling walker with 4 wheels, seat,and brakes. Lifetime need. Dx R26.2 1 Each 0 blood sugar diagnostic strips 1 Each daily. One touch ultra 2 test strips. Check FBS daily E11.65. 100 Each 11 MISCELLANEOUS MEDICAL SUPPLY [facility] Nebulizer Machine. Use nebulizer with current medication ever 4-6hours as needed for shortness of breath 1 Each 0 nebulizer accessories Nebulizer mask and tubing. Lifetime need. Use daily as needed. 1 Each 2 lancets Check FBS daily E11.65. Freestyle Lite 100 Each 11 albuterol (PROVENTIL) 2.5 mg /3 mL (0.083 %) nebulizer solution INHALE THE CONTENT OF 1 VIAL (3mls)VIA NEBULIZER EVERY 6 HOURS NEEDED FOR WHEEZING 150 mL 2 alcohol swabs Check FBS daily E11.65. 100 Each 11 blood sugar diagnostic (FREESTYLE TEST) strips Check FBS daily E11.65. Freestyle Lite 100 Each 11 budesonide-formoteroL (SYMBICORT) 160-4.5 mcg/actuation inhaler Inhale 2 Puffs into the lungs 2 (two) times daily 10.2 g 5 cyanocobalamin (VITAMIN B-12) 1,000 mcg tablet Take 1 Tablet by mouth once daily 90 Tablet 3 diclofenac sodium (VOLTAREN) 1 % gel Apply topically 2 (two) times daily 100 g 2 escitalopram (LEXAPRO) 10 mg tablet Take 1 Tablet by mouth once daily 90 Tablet 1 VENTOLIN HFA 90 mcg/actuation inhaler INHALE 2 PUFF BY MOUTH EVERY 4 HOURS NEEDED FOR WHEEZING 18 g 5 [facility] Diabetic shoes with custom inserts. Use daily as needed. Lifetimeneed. 2 Each 2 [facility] Recliner chair for foot/leg numbness problem secondary to diabetes. Pt is 5' 5 167lbs today. 1 each for lifetime. 1 Each 0 lidocaine (LMX) 4 % cream Apply topically as needed for pain 28 g 1 cane Use as needed for walking. Lifetime need. W19.XXXA. M54.42 G89.29. 1 Each 0 blood-glucose meter (ONETOUCH ULTRA2 METER) monitoring kit Use daily to monitor blood sugar. E11.8 1 Each 0 nebulizer and compressor Use daily as needed for asthma. 1 Each 0 ibuprofen 800 mg tablet Take 1 Tablet by mouth 3 (three) times daily as needed for pain 90 Tablet 0 blood-glucose meter monitoring kit Check FBS daily E11.65. Freestyle Lite 1 Each 0 blood pressure monitor Check BP BID and record readings. Dx I10.0 Lifetime need. 1 Kit 0 blood pressure kit med and lrg Take blood pressure 2 times daily and write down measurements so that they can be reviewed by your health care provider . 1 Kit 0 compression stocking Compression stockings, knee high, 20-30 mmHg. Lifetime need. Dx: R60.0 2 Each 0 No current facility-administered medications for this visit. Depression Screenin04/02/2024 9:41 AM How many times in the past year have you had 4 or more drinks in a day? NONE How many times in the past year have you used a recreational drug or used a prescription medicationfor nonmedical reasons? NONE Did patient decline PHQ screening? No Little interest or pleasure in doing things Not at all Feeling down, depressed or hopeless [include irritable if under 18] Not at all PHQ2 Score 0 Little interest or pleasure in doing things Not at all Feeling down, depressed or hopeless [include irritable if under 18] Not at all Trouble falling or staying asleep, or sleeping too much Not at all Feeling tired or having little energy Not at all Poor appetite or overeating Not at all Feeling bad about yourself - or that you are a failure or have let yourself or your family down Notat all Trouble concentrating on things like school work, reading or watching TV? Not at all Moving or speaking so slowly that other people could have noticed? Or the opposite - being so fidgety or restless that you have been moving around a lot more than usual Not at all Thoughts you would be better off or of hurting yourself in some way Not at all If you checked off any problems, how difficult have these problems made it for you to do your work,take care of things at home, or get along with other people? Not difficult at all PHQ-9 Total Score (Auto Calculated) 0 Depression Severity: None-minimal Objective: Vitals: Blood pressure 126/62, pulse 71, temperature 98.3 ??F (36.8 ??C), temperature source Oral, resp. rate 16, height 5' 2 (1.575 m), weight 160 lb (72.6 kg), SpO2 98%. Physical Exam Vitals reviewed. Constitutional: General: He is not in acute distress. Appearance: Normal appearance. He is not ill-appearing. HENT: Head: Normocephalic. Cardiovascular: Rate and Rhythm: Normal rate and regular rhythm. Pulses: Normal pulses. Heart sounds: No murmur heard. Pulmonary: Effort: Pulmonary effort is normal. No respiratory distress. Breath sounds: Normal breath sounds. No stridor. No wheezing, rhonchi or rales. Chest: Chest wall: No tenderness. Musculoskeletal: Right knee: Swelling and effusion present. No erythema, ecchymosis or lacerations. Decreased range of motion. Tenderness present. Left knee: No lacerations. Normal range of motion. Tenderness present. Legs: Comments: Right knee warm to touch Neurological: General: No focal deficit present. Mental Status: He is alert and oriented to person, place, and time. Mental status is at baseline. Gait: Gait normal. Psychiatric: Mood and Affect: Mood normal. Behavior: Behavior normal. Judgment: Judgment normal. Depression screen: PHQ-9 Total Score (Auto Calculated) 0 at 04/02/2024 9:41 AM 04/02/2024 9:41 AM How many times in the past year have you had 4 or more drinks in a day? NONE How many times in the past year have you used a recreational drug or used a prescription medicationfor nonmedical reasons? NONE Did patient decline PHQ screening? No Little interest or pleasure in doing things Not at all Feeling down, depressed or hopeless [include irritable if under 18] Not at all PHQ2 Score 0 Little interest or pleasure in doing things Not at all Feeling down, depressed or hopeless [include irritable if under 18] Not at all Trouble falling or staying asleep, or sleeping too much Not at all Feeling tired or having little energy Not at all Poor appetite or overeating Not at all Feeling bad about yourself - or that you are a failure or have let yourself or your family down Notat all Trouble concentrating on things like school work, reading or watching TV? Not at all Moving or speaking so slowly that other people could have noticed? Or the opposite - being so fidgety or restless that you have been moving around a lot more than usual Not at all Thoughts you would be better off or of hurting yourself in some way Not at all If you checked off any problems, how difficult have these problems made it for you to do your work,take care of things at home, or get along with other people? Not difficult at all PHQ-9 Total Score (Auto Calculated) 0 Depression Severity: None-minimal Assessment/Plan: M25.561,M25.562 Acute pain of both knees (primary encounter diagnosis) Plan : REFERRAL TO ORTHOPEDICS KNEES BILATERAL 3 VIEWS X-RAY W19.XXXA Fall, initial encounter -Swelling noted to right knee, ongoing X one month. Advised walk in ortho evaluation for potential arthrocentesis of right knee. XR ordered. Advised supportive care and activity as tolerated. Education on fall prevention. Follow up after results. documented in this encounter Miscellaneous Notes * Patient Instructions - CRUZ Workman - 01/28/2025 11:45 AM EST Walk in clinic [address] [facility] If you are not able to keep your appointment please call 24-48 hours before your appointment to cancel or reschedule. documented in this encounter Plan of Treatment Upcoming Encounters Date Type Department Care Team (Late st Contact Info) Description 02/01/2025 10:00 AM EDT Telemedicine Visit [facility] [address] [place] [address] Ewelina Hargrove PA-C [address] [place] [address] Jael Bee [address] [place] [address] Scheduled Orders Name Type Priority Associated Diagnoses Orde r Schedule KNEES BILATERAL 3 VIEWS X-RAY Imaging Routine Acute pain of both knees Ordered: 01/28/2025 Scheduled Referrals Name Type Priority Associated Diagnoses Orde r Schedule REFERRAL TO ORTHOPEDICS Referral Urgent Acute pain of both knees Ordered: 01/28/2025 documented as of this encounter Goals Goal Patient Goal Type Associated Problems Recent Progress Patient-Stated? Author Blood Pressure < 130/80 Blood Pressure Essential hypertension 126/62(2024 11:16 AM EST) No Gricelda Arredondo, PharmD documented as of this encounter Visit Diagnoses Diagnosis Acute pain of both knees- Primary Fall, initial encounter documented in this encounter Additional Health Concerns Assessment Noted Time PHQ-9 Depression Total Score: 0 04/02/20 24 9:41 AM PDT documented as of this encounter Care Teams [employer] Relationship Specialty Start Date End Date Ewelina Hargrove PA-C [facility] [place] [address] PCP - General Primary Care 06/01/24 documented as of this encounter
--- OUTSIDE RECORDS SUMMARY | 2025-01-31 23:29 | XMS_ITS | Encounter Summary ---
Author Organization [place] [address] Care Team Providers Care Geriatric Nursing Assistant Name Role Phone Cristina Gold [facility] Primary Care Provider [phone]- [phone] Reason for Visit * Reason Comments Shoulder Pain Encounter Details Date Type Department Care Team (Late st Contact Info) Description 01/09/2025 10:44 AM EST - 01/09/2025 2:35 PM EST Emergency [facility] Emergency [address] [place] [address] Chronic right shoulder pain (Primary Dx) Discharge Disposition: Home or Self Care Social History Tobacco Use Types Packs/Day Years Used Date Smoking Tobacco: Never Smokeless Tobacco: Never Alcohol Use Standard Drinks/Week Comments Never 0 (1 standard drink = 0.6 oz pur e alcohol) Sex and Gender Information Value Date Recorded Sex Assigned at Male 12/11/2024 6:50 PM EST Legal Sex Male 11:06 PM EST Gender Identity Male 12/11/2024 6:50 PM EST Sexual Orientation Not on file documented as of this encounter Last Filed [...] Mass Index 27.79 01/09/2025 10:20 AM EST documented in this encounter Discharge Disposition Disposition Code Departure Means Destination Comment s Home or Self Care documented in this encounter Progress Notes * Kanchan Beckwith RN - 01/09/2025 10:22 AM EST He arrives via ambulance with c/o chronic right shoulder pain. He states that his hands are swollen but there is no obvious swelling. * URIAH Bundy - 01/09/2025 10:06 AM EST Emergency Medicine Note Patient Name: Barak Giordano Initial Evaluation: 01/09/2025 : 1945 Patient's PCP: CRUZ Crawford Emergency Physician: URIAH Rios History of Present Illness Chief Complaint: Chief Complaint Patient presents with Shoulder Pain HPI: History is obtained via log peeler 79-year-old male with a history of diabetes, hypertension presents today via EMS after what he describes as right shoulder pain. Patient states that around 9:00 AM he developed shoulder pain and during that time he had numbness of his right arm. Patient states that this has happened to him in the past, intermittently over the past 3 years. Patient states he became concerned today as he also had some pain radiating across his back. Patient denies associated headache visual changes or weakness. Patient has noted increased cough since this morning as well with some wheezing. Patient was concerned that he is having swelling in both of his feet and his right hand but states that has subsided since arrival here in the ER. ROS: I have performed a ROS with the pertinent positives and negatives documented in the history ofpresent illness. Previous History Past Medical History: Diagnosis Date Depression Diabetes mellitus (CMS/HCC) Hypertension Past Surgical History: Procedure Laterality Date NECK SURGERY Social History Tobacco Use Smoking status: Never Smokeless tobacco: Never Vaping Use Vaping status: Never Used Substance Use Topics Alcohol use: Never Drug use: Never No family history on file. is allergic to penicillins, penicillin, and penicillin g. No current facility-administered medications on file prior to encounter. No current outpatient medications on file prior to encounter. Physical Exam ED Triage Vitals [01/09/25 1020] Temp Heart Rate Resp BP 36.6 ??C (97.9 ??F) 78 16 126/74 SpO2 Temp Source Heart Rate Source Patient Position 94 % Oral -- -- BP Location FiO2 (%) -- -- General: awake, calm, cooperative, No apparent distress Skin: warm, dry Eyes: PERRLA, EOMI ENT: mucosa moist, throat is clear Neck: soft/supple, full range of motion Respiratory: Faint expiratory wheeze in the bases Cardiovascular: regular rate and rhythm Musculoskeletal: Right shoulder: Point tender to palpation over AC joint, full range of motion, distal sensation and pulses intact Neurological: alert with no acute lateralizing deficit Psychiatric: stable mood and affect Results Labs Reviewed [id number], RSV, FLU A AND B QUALITATIVE RT-PCR, INTERNAL LAB - Normal Result Value Influenza A PCR Not Detected Influenza B PCR Not Detected RSV PCR Not Detected SARS COV-2 Not Detected Narrative: Disclaimer: Testing was performed using the [employer] GeneXpert Xpress SARS-CoV-2 _Flu_RSV PLUS PCR assay. The manner in which this information is used to guide patient care is the responsibility of the healthcare provider. Results should be correlated with the clinical history, epidemiological data,and other data available to the clinician evaluating the patient. Negative results do not preclude infection. This test has been authorized by the FDA under an Emergency Use Authorization (EUA). Thistest is only authorized for the duration of time the declaration that circumstances exist justifying the authorization of the emergency use of in vitro diagnostic tests for detection of SARS-CoV-2 virus and/or diagnosis of COVID-19 infection under section 564 (b) (1) of the Act, 21 U.S.C 360bbb-3 (b) (1), unless the authorization is terminated or revoked sooner. Reference Range: Not Detected Fact sheet for Healthcare providers can be found at https://www.fda.gov/media/748326/download. Fact sheet for Healthcare patients can be found at https://www.Uploadcare.gov/media/577739/download. Abnormal Labs Reviewed - No abnormal labs to display XR Chest 2 Views Final Result FINDINGS/IMPRESSION: No significant change compared to prior examination. Normal heart size and pulmonary vascularity. Lungs are clear and costophrenic angles are sharp. No acute osseous abnormality.. -------- FINAL REPORT -------- Dictated By: Cruz Edmondson Dictated Date: 01/09/2025 12:17 ET Assigned Physician: Cruz Edmondson Reviewed and Electronically Signed By: Cruz Edmondson Signed Date: 01/09/2025 12:18 ET Workstation ID: [id number] Transcribed By: Self Edit Transcribed Date: 01/09/2025 12:17 ET XR Shoulder 2+ Views Right Final Result FINDINGS/IMPRESSION: Significant degenerative changes of the glenohumeral and acromioclavicular joint. No acute fracture or dislocation. 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 -------- FINAL REPORT -------- Dictated By: Cruz Edmondson Dictated Date: 01/09/2025 12:20 ET Assigned Physician: Cruz Edmondson Reviewed and Electronically Signed By: Cruz Edmondson Signed Date: 01/09/2025 12:21 ET Workstation ID: [id number] Transcribed By: Self Edit Transcribed Date: 01/09/2025 12:20 ET I have discussed the incidental/abnormal imaging and/or lab abnormalities with the patient and haveinstructed them the need for further evaluation and workup with their primary care doctor. I have provided the patient with a paper copy of the abnormality. The laboratory results, imaging results and other diagnostic exam results were reviewed in the EMR. EKG Interpretation Normal sinus rhythm at a rate of 66 with no acute ischemic changes Critical Care Time None ? Medical Decision Making 79-year-old male presents today via EMS with shoulder pain. EKG will be ordered, he does have some mild wheezing on exam we will order a chest x-ray along with a flu COVID and RSV swab. Patient does have tenderness over the AC joint right shoulder x-ray was ordered however this appears to be more chronic in nature Medications - No data to display ED Course as of 01/09/25 1432 Sat Jan 09, 2025 1358 I explained to patient with the log peeler that his imaging looked okay as well as his EKG, instead of waiting for his discharge paperwork patient ambulated out of the ER without difficulty. [NG] ED Course User Index [NG] URIAH Bundy Clinical Impressions as of 01/09/25 1432 Chronic right shoulder pain Procedures Procedures Diagnosis 1. Chronic right shoulder pain Disposition Discharge ED Prescriptions None Physician Attestation URIAH Bundy 01/09/25 1126 URIAH Bundy 01/09/25 1136 URIAH Bundy 01/09/25 1432 Cosigned by Bang Perkins MD at 01/10/2025 11:06 AM EST documented in this encounter Plan of Treatment Upcoming Encounters Date Type Department Care Team (Late st Contact Info) Description 04/06/2025 9:45 AM EDT Office Visit Orthopedic Surgery - [place] [address] [address] Charlie Samuels, DPM [address] [address] documented as of this encounter Procedures Procedure Name Priority Date/Time Associated Diagnosis Comments ECG ANNOTATED 01/11/2025 ECG 12-LEAD STAT 01/09/2025 12:22 PM EST XR SHOULDER 2+ VIEWS RIGHT STAT 01/09/2025 11:36 AM EST XR CHEST 2 VIEWS STAT 01/09/2025 11:3 6 AM EST [id number], RSV, FLU A AND B QUALITATIVE RT-PCR, INTERNAL LAB STAT 01/09/2025 11:16 AM EST documented in this encounter Results * ECG-Annotated (01/11/2025) us Provider Onbase MD ECG ORDERABLES Final Result * ECG 12 lead (01/09/2025 12:22 PM EST) Ventricular Rate ECG 66 BPM GEMUSE Atrial Rate 66 BPM GEMUSE P-R Interval 164 ms GEMUSE QRS Duration 82 ms GEMUSE Q-T Interval 400 ms GEMUSE QTc 419 ms GEMUSE P Wave [place] 66 degrees GEMUSE R [place] 57 degrees GEMUSE T [place] 52 degrees GEMUSE ECG Interpretation Normal sinus rhythm Normal ECG When compared with ECG of 11-DEC-2024 16:54, No significant change was found Confirmed by SHELDON CORONADO ([id number]) on 01/10/2025 6:14:56 PM GEMUSE 01/09/2025 12:2 2 PM EST 01/10/2025 6:14 PM EST Bhavani KRUSE ECG ORDERABLES Final Re sult [...] Signed Date: 01/09/2025 12:21 ET Workstation ID: [id number] Transcribed By: Self Edit Transcribed Date: 01/09/2025 [...] Signed Date: 01/09/2025 12:21 ET Workstation ID: [id number] Transcribed By: Self Edit Transcribed Date: 01/09/2025 12:20 ET Bhavani KRUSE IMG XR PROCEDURES Final [...] Signed Date: 01/09/2025 12:18 ET Workstation ID: [id number] Transcribed By: Self Edit Transcribed Date: 01/09/2025 [...] Signed Date: 01/09/2025 12:18 ET Workstation ID: [id number] Transcribed By: Self Edit Transcribed Date: 01/09/2025 12:17 ET Bhavani KRUSE IMG XR PROCEDURES Final Result * [id number], RSV, Influenza A and B qualitative RT-PCR (01/09/2025 11:16 AM EST) Influenza A PCR Not Detected Not Detected LAB MICROBIOLOGY METHOD 01/09/2025 12:11 PM [facility] Influenza B PCR Not Detected Not Detected LAB MICROBIOLOGY METHOD 01/09/2025 12:11 PM [facility] RSV PCR Not Detected Not Detected LAB MICROBIOLOGY METHOD 01/09/2025 12:11 PM [facility] SARS COV-2 Not Detected Not Detected LAB MICROBIOLOGY METHOD 01/09/2025 12:11 PM [facility] Swab Both anterior nares / Unknown Non-blood Collection / Unknown 01/09/2025 11:16 AM EST 01/09/2025 11:30 AM EST [facility] - 01/09/2025 12:11 PM EST Disclaimer: ??Testing was performed using the [employer] GeneXpert Xpress SARS-CoV-2 _Flu_RSV PLUS PCR assay. [...] for Healthcare providers can be found at https://www.fda.gov/media/766323/download. ?? Fact sheet for Healthcare patients can be found at https://www.fda.gov/media/632338/download. Bhavani KRUSE LAB MICROBIOLOGY - GENER AL ORDERABLES Final Result [facility] ([facility]) [facility] [address] [place] [address], documented in this encounter Visit Diagnoses Diagnosis Chronic right shoulder pain- Primary Pain in joint, shoulder region documented in this encounter Additional Health Concerns Infection Onset Date Last Indicated Resolved Time Respiratory Rule-Out 01/09/2025 01/09/2025 025 12:11 PM EST COVID-19 Rule-Out 01/09/2025 01/09/2025 01/09/2025 12:11 PM EST documented as of this encounter Care Teams Geriatric Nursing Assistant Relationship Specialty Start Date End Date Cristina Gold FNP [address] [place] [phone] PCP - General Internal Medicine 05/08/22 documented as of this encounter
--- OUTSIDE RECORDS SUMMARY | 2025-01-31 23:29 | XMS_ITS | Data Portability ---
Author Organization [facility] - [facility] Address [address] [place] [address] Care Team Providers Care Manager Of Software Development Name Role Phone HIM CCA OTHER Assessment Encounter Date Assessment Date Assessment LastModified by Organization Details LastModified Time 11/27/2022 11/27/2022 I provided real -time medical direction via phone for this encounter, and was available for additional phone based assistance as needed. I have reviewed and agree with the Assessment and Plan as documented by the Store Clerk Cashier. Patient given the opportunity to ask questions. [email or web address] Not available 11/27/2022 14:05:29 Plan of Treatment Reminders Order Date Submit Date Provider Last Modified By Organization Details Last Modified Time Details Appointments None recorded. Lab BMP, serum or plasma 2022 023 [email or web address] 0 [facility], [address] [place] [address], [phone], 3 14:31:11 Referral None recorded. Procedures None recorded. Surgeries None recorded. Imaging None recorded. Medication Orders Tylenol Extra Strength 500 mg tablet 2022 023 [email or web address] 0 Not available 3 14:08:36 bacitracin 500 unit/gram topical ointment 2022 023 [email or web address] 0 Not available 3 14:08:36 bacitracin 500 unit/gram topical ointment 2022 023 [facility] [place] - [id number], [address] [facility], [place], [address], 4 16:45:54 Tylenol 8 Hour 650 mg tablet,exte nded release 2022 023 [place], [place] - [id number], [address] [place], [address], 4 16:45:55 ketorolac 30 mg/mL (1 mL) injection solution 2022 023 [email or web address] 0 [place], [place] - [id number], [address] [place], [address], 3 14:31:10 ibuprofen 400 mg tablet 2022 023 [place], [place] - [id number], [address] [place], [address], 4 16:45:55 Patient TargetsNo targets recorded. Patient Instructions Encounter Date Encounter Id Patient Instructions Last Modified By Organization Details Last Modified Time 11/27/2022 [id number] application of wound dressing* [email or web address] Not available 11/27/2022 14:08:36 Reason for Referral None Reported. Results Created Date Observation Date Name Description Value Unit Range Abnormal Flag Note LastModifiedBy Organization Detail LastModifiedTime 11/27/1911/27/2022 BMP, serum or plasm a BUN 15 Not Available [facility] - [facility] [address], [address], 11/27/2022 14:08:46 11/27/19 23 11/27/2022 BMP, serum or plasm a Ca I samaria 1.10 Not Available [facility] - [facility] [address] [place] [address], [phone], 11/27/2022 14:08:46 11/27/19 23 11/27/2022 BMP, serum or plasm a CI- 102 Not Available [facility] [address], [address], 11/27/2022 14:08:46 11/27/19 23 11/27/2022 BMP, serum or plasm a CRE 0.6 Not Available [facility] [address], [address], 11/27/2022 14:08:46 11/27/19 23 11/27/2022 BMP, serum or plasm a GLU 128 Not Available [facility] [address], [address], 11/27/2022 14:08:46 11/27/19 23 11/27/2022 BMP, serum or plasm a K+ 3.5 Not Available [facility] [address], [address], 11/27/2022 14:08:46 11/27/19 23 11/27/2022 BMP, serum or plasm a Na+ 139 Not Available [facility] [address], [address], 11/27/2022 14:08:46 11/27/19 23 11/27/2022 BMP, serum or plasm a tCO2 28 Not Available [facility] - [facility] [address], [place], [address], 11/27/2022 14:08:46 Result Notes None recorded. Medical Equipment None Reported. Allergies Allergen ID Allergen Name Allergen Category Reaction Reaction Severity Criticality Documentation Date Start Date Code Code System Note Provider Name and Address Organization Details Recorded Time 7 Product containin g penicilli n (product) medicatio n Not available Not available Not available 11/27/2022 24907 8001 SNOMED Not Available [facility] - production 4 03:49:30 166 prednison e medicatio n rash Not available Not available 11/27/2022 8640 RxNorm Florencia Scott MD [address] [place] [address],[address], [place], [address] , [employer] 14:04:15 Medications Name Sig Start Date Stop Date Status Note LastModified by Organization Details LastModified Time Prescription - Renewal active Not Available Not Available No t Available metformin 500 mg tablet TAKE 1 TABLET BY MOUTH two (2) times a day take with food active Not Available Not Available No t Available atorvastatin 20 mg tablet TAKE 1 TABLET BY MOUTH ONCE DAILY active Not Available Not Available No t Available albuterol sulfate 2.5 mg/3 mL (0.083 %) solution for nebulization INHALE THE CONTENT OF 1 VIAL (3mls) VIA nebulizer EVERY 6 HOURS NEEDED FOR WHEEZING active Not Available Not Available No t Available trazodone 50 mg tablet TAKE 1 TABLET BY MOUTH ONCE DAILY AT BEDTIME active Not Available Not Available No t Available bacitracin 500 unit/gram topical ointment Apply 1 application twice a day by topical route. active Not Available Not Available No t Available ketorolac 30 mg/mL (1 mL) injection solution 15mg IM x 1 for foot pain 2022 active Not Available Not Available Not Avai lable amlodipine 10 mg tablet TAKE 1 TABLET BY MOUTH ONCE DAILY active Not Available Not Available No t Available cephalexin 500 mg capsule active Not Available Not Available Not Available ibuprofen 400 mg tablet Take 1 tablet 3 times a day by oral route as needed. active Not Available Not Available No t Available hydrochlorot hiazide 12.5 mg capsule TAKE 1 CAPSULE BY MOUTH ONCE DAILY active Not Available Not Available No t Available lorazepam 1 mg tablet TAKE 1 TABLET BY MOUTH ONCE DAILY AT BEDTIME NEEDED ANXIETY OR SLEEP active Not Available Not Available No t Available clotrimazole 1 % topical cream APPLY TO THE AFFECTED AREA TOPICALLY two (2) times a day active Not Available Not Available Not Available naproxen 500 mg tablet TAKE 1 TABLET BY MOUTH two (2) times a day NEEDED FOR PAIN active Not Available Not Available No t Available Tylenol Extra Strength 500 mg tablet 1000 mg po now 2022 active Not Available Not Available Not Avai lable Ventolin HFA 90 mcg/actuatio n aerosol inhaler active Not Available Not Available Not Available Mapap Arthritis Pain 650 mg tablet,exten ded release Take 1 tablet every 6-8 hours by oral route as needed. active Not Available Not Available N ot Available Symbicort 160 mcg-4.5 mcg/actuatio n HFA aerosol inhaler active Not Available Not Available Not Available Sure Comfort Lancets 28 gauge USE TO TEST FINGER STICK BLOOD SUGAR DAILY active Not Available Not Available Not Available Contour Next Test Strips USE TO TEST FINGER STICK BLOOD SUGAR DAILY active Not Available Not Available Not Available Daily-Elkin (with folic acid) 400 mcg tablet TAKE 1 TABLET BY MOUTH ONCE DAILY active Not Available Not Available No t Available Vitals Date Recorded Respiratory rate Oxygen saturation Oxygen saturation in Arterial blood by Pulse oximetry Heart rate Body weight Body temperature Respiratory rate Body weight Body temperature Heart rate Oxygen saturation Oxygen saturation in Arterial blood by Pulse oximetry Systolic blood pressure Diastolic blood pressure Systolic blood pressure Diastolic blood pressure Provider Name and Address Organization Details Last Updated DateTime 3 16 /min 99 % 99 % 76 /min 09576.8 64 g 98 [degF] 16 /min 63667.8 64 g 98 [degF] 76 /min 99 % 99 % 138 mm[Hg] 73 mm[Hg] 138 mm[Hg] 73 mm[Hg] Not Available [facility] - production 3 14:44:09 Social History None recorded. Functional Status None recorded. Mental Status None recorded. Family History Nothing Reported. Medical History No medical history recorded. Past Encounters Encounter ID Performer Location Encounter Start Date Encounter Closed Date Diagnosis/Indication Diagnosis SNOMED-CT Code Diagnosis ICD10 Code Diagnosis Note [id number] Florencia Scott MD [facility] - [facility] [address] [place] [phone] 11/27/2022 13:45:02 11/29/2022 10:50:26 Diabetic foot ulcer 003094323 E13.621 pat request rx for tylenol- given weight can do 650 mg 3-4 x days- since he does not wish to see podiatry again- I advised he d/w pcp in the am a referral to a retirement specialist - advised recheck KORINA if any s/ infection occurred- medic reviewed w/him what to watch for - checked BMP- nl renal function- given ketorolac and RX for iburpofen( advised not to start ibuprofen til tomorrow due to ketorolac) . Health Concerns Section Related Observation LastModified by Organization Detai ls LastModified Time None Recorded Concern Status LastModified by Organization Details LastModified Time None Recorded Advance Directives Directive None Recorded Payers Encounter Date Sequence Insurance Name Policy Number Policy Chicas Covered Member ID Chicas Member ID Guarantor Name 11/27/2022 1 [facility] - DOS PRIOR TO 2023 - DUAL ELIGIBLE (MEDICARE REPLACEMENT/ADV ANTAGE - HMO) Barak Giordano [id number] Barak Giordano Notes Date Note Type Note Provider Name and Address Organization Details Recorded Time 11/27/2022 text/html HPI: Referral placed on behalf of ROSIE Wayne Nurse .................... .................... .................... .................... .................... .................... .................... . CRC Nursing Assessment: Comments: Member with a left great toe sore x 1 month. Per nurse redness is increasing. Wound bed is dry, not open, is on the tip of the toe. Skin is boggy, ?DTI. Would like evaluation of toe and recommendations. .................... .................... .................... .................... .................... .................... .................... . Store Clerk Cashier Note: pt presents awake and alert c/o chronic (9 months) dry ulcer and 9/10 pain to the left great toe. Pt sts ulcer has not gotten worse looking. pt sts he has seen podiatry several times and they have not treated. No signs of infection (no discharge, redness, warmth); +CSM. POC labs unremarkable. Toe was cleaned and dressed with bacitracin and DSD. Wound care supplies left with pt. 1 g PO tylenol and 15 mg IM toradol administered with pt endorsing pain relief and no change in VS. pt advised to call PCP and obtain a wound care referral. .................... .................... .................... .................... .................... .................... .................... . Disposition: FulfilledSEGMD: as above - states got some relief w/ ibuprofen and APAP but ran out- denies hx ckd/ GI bleeding/ not on anticoagulants Florencia Scott MD [address] [facility],[address], [place], [address], [employer] 11/27/2022 22:58:06
--- OUTSIDE RECORDS SUMMARY | 2025-01-31 23:29 | XMS_ITS | Encounter Summary ---
Author Organization [employer] Address [address] [place] [address] Care Team Providers Care Airplane Cover Maker Name Role Phone Alla Cristina James PROCUREMENT PROFESSIONAL Primary Care Provider [phone] Reason for Visit * Reason Comments Consult Emerson foot pain * Consultation (Routine) - Closed Specialty Diagnoses / Procedures Referred By Contact Referred To Contact Podiatry / Orthopaedic Surgery Diagnoses Bilateral foot pain Elvia Mcqueen PA [address] [address] Phone: tel: fax: Charlie Samuels DPM [address] [address] Phone: tel: fax: Referral ID Status Reason Start Date Expiration Date V isits Requested Visits Authorized [id number] Closed Specialty Services Required 09/24/2024 09/24/2025 1 1 Encounter Details Date Type Department Care Team (Late st Contact Info) Description 01/07/2025 9:45 AM EST Office Visit Orthopedic Surgery - [place] [address] [phone] Charlie Samuels DPM [address] [address] Dermatophytosis of nail (Primary Dx); Wheezing; Bilateral foot pain; Pain in toe of right foot; Pain in toe of left foot; 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); Diabetic mononeuropathy simplex (CMS/HCC); Metatarsalgia of both feet; Hammer toe of left foot; Acquired hammer toe of right foot; Primary osteoarthritis of both feet Social History Tobacco Use Types Packs/Day Years [...] Sign Reading Time Taken Comments Blood Pressure - - Pulse - - Temperature - - Respiratory Rate - - Oxygen Saturation - - Inhaled Oxygen Concentration - - Weight 71.2 kg (157 lb) 01/07/2025 9:47 AM EST Height 165.1 cm (5' 5 ) 01/07/2025 9:47 AM EST Body Mass Index 26.13 01/07/2025 9:47 AM EST documented in this encounter Progress Notes * Charlie Samuels DPM - 01/07/2025 9:45 AM EST Last PCP visit:Referring MD: Elvia Mcqueen PA 09/23/24 IDENTIFIER: Pasquale is a 79 y.o. year old male who presents for consultation. CC: Foot pain HPI: Location both feet , Symptoms burning achy nubing at night, Severity 4/10 yumiko visual analog scale. Duration of greater than 1 year, Worse night. Improve without morning Denies trauma just woke up with it, Modifying factors stopping activiities changing shoes, associated symptoms walking different notes nails painful thickened discolored ROS: GENERAL: Pt denies nausea, fever, vomiting, chills, or shortness of breath. Pt in NAD. CARDIOLOGY: pt denies chest pain, palpitations LUNGS: pt denies shortness of breath MUSCULOSKELETAL: See HPI, otherwise no joint pain or swelling, back pain, or muscle pain. SKIN: see HPI, otherwise no lesions, rash or itching NEURO: No persistent headache, weakness or numbness The remainder of the review of systems is noncontributory PAST MEDICAL HISTORY: There is no problem list on file for this patient. DM type 2 SOCIAL HISTORY: Social History Tobacco Use Smoking status: Never Smokeless tobacco: Never Substance Use Topics Alcohol use: Never ACTIVE MEDICATIONS: No outpatient medications have been marked as taking for the 01/07/25 encounter (Office Visit) with Charlie Samuels DPM. ALLERGIES: Allergies Allergen Reactions Penicillin G PHYSICAL EXAM: Visit Vitals Ht 1.651 m (65 ) Wt 71.2 kg (157 lb) BMI 26.13 kg/m?? Smoking Status Never BSA 1.78 m?? PODIATRIC EXAMINATION: GENERAL: Patient appears well nourished, with NAD. VASCULAR: Dorsalis pedis pulses are 1/4 bilaterally and Posterior tibial pulses are 0/4 right 1/4 left . Capillary filling time within normal limits the digits. No pallor on elevation or rubor on dependency. No varicosities. Denies rest pain or claudication pain. NEUROLOGICAL: Sharp/dull sensation intact, protective sensation intact 10/10 with 5.07 semmes gaye bilaterally, vibratory sensation with tuning fork intact to the tibial tuberosity. ORTHOPEDIC: Good muscle strength 5/5 of all flexors and extensors. Dorsi flexion of ankle ,10 degrees, plantar flexion WNL. No muscle atrophy. DERMATOLOGICAL:. Toenails: Left Toenail(s) 1-5: Crumbling upon debridement, subungual debris, discoloration, dystrophy, elongation, mycotic appearance, onychomycosis, pain and thickening. Right Toenail(s) 1-5: Crumbling upon debridement, subungual debris, discoloration, dystrophy, elongation, mycotic appearance, onychomycosis, pain and thickening. Annular scaling bilateral feet moccasin distribution Skin thinning texture shiny appearance diffuse hyperpigmentation bilaterally pedal hair decreased BIOMECHANICS: Ankle ROM WNL, STJ ROM wnl, MTJ ROM crepitation b/l, 1st MPJ ROM wnl. Hammer toe 2-5 rigid bilateral IMAGING: IMPRESSION: 1. Dermatophytosis of nail 2. Wheezing 3. Bilateral foot pain 4. Pain in toe of right foot 5. Pain in toe of left foot 6. 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) 7. Diabetic mononeuropathy simplex (CMS/HCC) 8. Metatarsalgia of both feet 9. Hammer toe of left foot 10. Acquired hammer toe of right foot 11. Primary osteoarthritis of both feet PLAN: Pt was seen and examined, history reviewed. Arthritic treatment reviewed Treatment options were discussed and reviewed including stretching exercises demonstrated for patient anti-inflammatory medications steroid injections orthotics and insoles Recommendations given for prefabricated insoles Referral offered physical therapy patient declined Prescription given for anti-inflammatory medication Discussed with patient regarding proper glucose control, exercise, and diet. Explained to patient proper shoe gear, and importance of daily foot checks. I reviewed neuropathy and why it occurs in diabetics. I educated the patient on proper blood sugar control and the importance of an HgBA1c of less than 7.0%. I reviewed the signs and symptoms of neuropathy with the patient Pt to return for another evaluation in 3 months. Debridement of mycotic toenails 6-10: Verbal informed consent was obtained from the patient. Greater than 6 nails were aseptically debrided in thickness and length with nail nippers Charlie Samuels DPM documented in this encounter Plan of Treatment Upcoming Encounters Date Type Department Care Team ([facility] st Contact Info) Description 04/06/2025 9:45 AM EDT Office Visit Orthopedic Surgery - [place] [address] [phone] Charlie Samuels DPM [address] [address] documented as of this encounter Visit Diagnoses Diagnosis Dermatophytosis of nail- Primary Wheezing Bilateral foot pain Pain in toe of right foot Pain in soft tissues of limb Pain in toe of left foot Pain in soft tissues of limb 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) Type II or unspecified type diabetes mellitus with peripheral circulatory disorders, not stated as uncontrolled 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
--- OUTSIDE RECORDS SUMMARY | 2025-01-31 23:29 | XMS_ITS | Clinical Summary ---
Author Organization [facility] Address [address] [place] [address] Care Team Providers Care Scrap Baler Name Role Phone Ewelina Hargrove PA-C Primary Care Provider [phone] Source Comments PLEASE NOTE, if this patient is a minor, it may be UNLAWFUL to discuss sensitive information that is contained in these records (such as FAMILY PLANNING, MENTAL HEALTH or SUBSTANCE ABUSE) with the minor patient's parent or other person without the patient's specific authorization.[facility] Allergies Active Allergy Reactions Criticality Noted Date Comments Penicillins Anaphylaxis 06/19/2016 Medications compression stocking Compression stockings, knee high, 20-30 mmHg. Lifetime need. Dx: R60.0 2 Each 0 08/31/20 16 Active blood pressure kit med and lrgIndications:Es sential hypertension Take blood pressure 2 times daily and write down measurements so that they can be reviewed by your health care provider . 1 Kit 02/17/20 20 Active blood pressure monitorIndication s:Essential hypertension Check BP BID and record readings. Dx I10.0 Lifetime need. 1 Kit 06/27/20 20 Active blood-glucose meter monitoring kitIndications:Ty pe 2 diabetes mellitus without complication, without long-term current use of insulin ([facility]) Check FBS daily E11.65. Freestyle Lite 1 Each 05/07/20 22 Active ibuprofen 800 mg tabletIndications :Tooth pain,Chronic dental pain Take 1 Tablet by mouth 3 (three) times daily as needed for pain 90 Tablet 04/25/20 23 Active nebulizer and compressorIndicat ions:Mild persistent asthma without complication Use daily as needed for asthma. 1 Each 08/14/20 23 Active blood-glucose meter (Alnylam PharmaceuticalsTOUCH ULTRA2 METER) monitoring kitIndications:Ty pe 2 diabetes mellitus without complications ([facility]) Use daily to monitor blood sugar. E11.8 1 Each 09/12/20 23 Active caneIndications:F all, initial encounter,Chronic left-sided low back pain with left-sided sciatica Use as needed for walking. Lifetime need. W19.XXXA. M54.42 G89.29. 1 Each 09/30/20 23 Active lidocaine (LMX) 4 % creamIndications: Acute pain of left shoulder,Acute pain of left knee Apply topically as needed for pain 28 g 1 12/13/19 24 Active MISCELLANEOUS MEDICAL SUPPLY MISCIndications:T ype 2 diabetes mellitus without complication, without long-term current use of insulin ([facility]) Recliner chair for foot/leg numbness problem secondary to diabetes. Pt is 5' 5 167lbs today. 1 each for lifetime. 1 Each 12/23/19 24 Active MISCELLANEOUS MEDICAL SUPPLY MISCIndications:T ype 2 diabetes mellitus without complication, without long-term current use of insulin ([facility]),Onychom ycosis Diabetic shoes with custom inserts. Use daily as needed. Lifetime need. 2 Each 2 04/02/20 24 Active VENTOLIN HFA 90 mcg/actuation inhalerIndication s:Mild persistent asthma without complication INHALE 2 PUFF BY MOUTH EVERY 4 HOURS NEEDED FOR WHEEZING 18 g 5 09/12/20 24 Active escitalopram (LEXAPRO) 10 mg tabletIndications :PTSD (post-traumatic stress disorder),Grievin g,Mourning Take 1 Tablet by mouth once daily 90 Tablet 1 10/05/20 24 Active diclofenac sodium (VOLTAREN) 1 % gelIndications:Co stochondritis Apply topically 2 (two) times daily 100 g 2 10/05/20 24 Active cyanocobalamin (VITAMIN B-12) 1,000 mcg tabletIndications :B12 deficiency Take 1 Tablet by mouth once daily 90 Tablet 3 10/05/20 24 Active budesonide-formot Jinny (SYMBICORT) 160-4.5 mcg/actuation inhalerIndication s:Mild persistent asthma without complication Inhale 2 Puffs into the lungs 2 (two) times daily 10.2 g 5 10/05/20 Active blood sugar diagnostic (FREESTYLE TEST) stripsIndications :Type 2 diabetes mellitus without complication, without long-term current use of insulin ([facility]) Check FBS daily E11.65. Freestyle Lite 100 Each 10/05/20 Active alcohol swabsIndications: Type 2 diabetes mellitus without complication, without long-term current use of insulin ([facility]) Check FBS daily E11.65. 100 Each 10/05/20 24 Active albuterol (PROVENTIL) 2.5 mg /3 mL (0.083 %) nebulizer solutionIndicatio ns:Mild persistent asthma without complication INHALE THE CONTENT OF 1 VIAL (3mls) VIA NEBULIZER EVERY 6 HOURS NEEDED FOR WHEEZING 150 mL 2 10/06/20 Active lancetsIndication s:Type 2 diabetes mellitus without complication, without long-term current use of insulin ([facility]) Check FBS daily E11.65. Freestyle Lite 100 Each 10/08/20 24 Active blood sugar diagnostic strips 1 Each daily. One touch ultra 2 test strips. Check FBS daily E11.65. 100 Each 10/16/20 Active MISCELLANEOUS MEDICAL SUPPLY MISCIndications:M ild persistent asthma without complication Nebulizer Machine. Use nebulizer with current medication ever 4-6 hours as needed for shortness of breath 1 Each 10/16/20 Active nebulizer accessoriesIndica tions:Mild persistent asthma without complication Nebulizer mask and tubing. Lifetime need. Use daily as needed. 1 Each 2 10/16/20 Active MISCELLANEOUS MEDICAL SUPPLY MISCIndications:D ifficulty balancing,Difficu lty walking,Risk for falls by miscellaneous route daily. Rolling walker with 4 wheels, seat, and brakes. Lifetime need. Dx R26.2 1 Each 10/30/20 24 Active amLODIPine (NORVASC) 10 mg tabletIndications :Essential hypertension Take 1 Tablet by mouth once daily 90 Tablet 1 11/24/20 24 Active atorvastatin (LIPITOR) 20 mg tabletIndications :Dyslipidemia,On statin therapy Take 1 Tablet by mouth once daily 90 Tablet 1 11/24/20 24 Active metFORMIN XR (GLUCOPHAGE-XR) 500 mg 24 hr tabletIndications :DM (diabetes mellitus), type 2 with neurological complications ([facility]) Take 2 Tablets by mouth once daily with breakfast 180 Tablet 1 11/24/20 24 Active carbamide peroxide (DEBROX) 6.5 % otic solutionIndicatio ns:Excessive ear wax, right Place 10 Drops into the right ear 2 (two) times daily 15 mL 11/24/20 24 Active acetaminophen (TYLENOL) 500 mg tabletIndications :Tooth pain,Chronic dental pain TAKE 1 TABLET BY MOUTH EVERY 6 HOURS NEEDED FOR PAIN 120 Tablet 12/08/19 25 Active DAILY-TRACY, WITH FOLIC ACID, 400 mcg tabIndications:Ty pe 2 diabetes mellitus without complication, without long-term current use of insulin ([facility]) TAKE 1 TABLET BY MOUTH ONCE DAILY 90 Tablet 3 12/18/19 25 Active Active Problems Problem Noted Date Diagnosed Date Peripheral neuropathy 11/24/2024 Podiatry visit, routine 06/19/2024 Overview (06/19/2024): 06/15/2024 - [facility] - Dx: 1) Painful onychomycosis toes 1 - 5 bilateral feet. 2) DM type 2 with Neurological complications H/O complete eye exam 04/22/2024 Overview (04/22/2024): 03/26/24 Eyesight and Surgery. No DR> B12 deficiency 10/15/2023 Overview (10/15/2023): Noted during hospital admission to [facility] 10/07/23 Intermittent chest pain 09/26/2023 Intermittent headache 09/26/2023 Heel spur 07/15/2022 Overview (07/15/2022): Xray June 2022 [facility] nondisplaced fracture of left great toe with routine healing 05/14/2022 Mild persistent asthma without complication 04/26 Moderate major depression, single episode ([facility]) 05/14/2022 Overview (05/24/2022): 05/23/22 Admitted for the day to [facility] for grief reaction. D/c on Lexapro 5 mg, trazodone, and Abilify. Mixed hyperlipidemia 07/08/2020 Psychophysiological insomnia 07/04/2020 Corneal abrasion, left 08/22/2017 Overview (08/22/2017): 08/17/17 [facility] for L eye pain. Dx: corneal abrasion. Rx: Polytrim q3h x 7 days, F/u with Dr Gan Onychomycosis 02/19/2017 Overview (06/19/2024): 06/15/2024 - [facility] - Dx: 1) Painful onychomycosis toes 1 - 5 bilateral feet. - Treatment consisted of electric and manual debridement fo the painful mycotic nail plates on toes 1-5 of the right foot and 1-5 of the left foot 2) DM type 2 with Neurological complications 02/14/17 Sylwia Osei II at [facility] Toenails trimmed. No treatment given. H/O: gout 08/28/2016 Essential hypertension 08/28/2016 DM (diabetes mellitus), type 2 with neurological complications ([facility]) 08/28/2016 Chronic right shoulder pain 07/26/2016 Overview (07/26/2016): MRI of R shoulder 03/09/16 ordered by Heber Hoffman shows arthritic changes with bony and ligamentous hypertrophy about the AC joint. Downward spurring and congestion in region of the rotator cuff. . Partial-thickness tearing of the insertion site of the subscapularis tendon. Subluxation and severe tendinopathy affects the upper aspect of obie tendon of the long head of the biceps. Superior labral tearing extending into the posterior labrum Resolved Problems Problem Noted Date Diagnosed Date Resolved Date Acute cystitis 10/15/2023 11/14/2023 Overview (10/15/2023): Admitted to [facility] 10/04/23 for pyelonephritis and syncope Class 1 obesity with body ma ss index (BMI) of 32.0 to 32.9 in adult 09/07/2021 05/07/2022 Encounters Date Type Department Care Team Description 01/28/2025 11:00 AM EST Office Visit [address] [phone] Vika Ash FNP Martinez, Celestia Acute pain of both knees (Primary Dx); Fall, initial encounter 11/24/2024 10:00 AM EST Office Visit [address] [phone] Ewelina Hargrove PA-C Lopez, Iris Annual physical exam (Primary Dx); Dysuria; Essential hypertension; Dyslipidemia; DM (diabetes mellitus), type 2 with neurological complications ([facility]); On statin therapy; Need for vaccination; Onychomycosis; H/O: gout; Neuropathy of both feet; Excessive ear wax, right; Polypharmacy; Dizziness 11/24/2024 Travel 11/02/2024 Interim Notes [address] [phone] Dunia Buck CMA from Last 3 Months Immunizations Name Administration Dates Next Due Influenza (FLUZONE), high-do se, trivalent, PF 11/24/2024,10/09/2018,11/01/2017 Moderna COVID-19 Vaccine, re d cap blue label, 12+ Primary Series 03/04/2021,01/28/2021 PNEUMOCOCCAL CONJUGATE PCV 13 02/19/2017 PNEUMOCOCCAL POLYSACCHARIDE PPV23 04/30/2018, TDAP 07/20/2023,02/19/2017 ZOSTER VACCINE, RECOMBINANT (SHINGRIX) Family History Medical History Relation Name Comments No Known Problems Brother 1 No Known Problems Brother 2 No Known Problems Brother 3 No Known Problems Brother 4 No Known Problems Brother 5 No Known Problems Father Cancer Maternal Grandfather Stomach CA Heart Problems Mother No Known Problems Sister 1 No Known Problems Sister 2 No Known Problems Sister 3 No Known Problems Sister 4 No Known Problems Sister 5 No Known Problems Sister 6 Relation Name Status Comments Brother 1 Alive Brother 2 Alive Brother 3 Alive Brother 4 Alive Brother 5 Alive Father Maternal Grandfather Mother Sister 1 Alive Sister 2 Alive Sister 3 Alive Sister 4 Alive Sister 5 Alive Sister 6 Alive Social History Tobacco Use Types Packs/Day Years [...] Orientation Straight 06/02/2018 6: 01 AM PDT Last Filed Vital Signs Vital Sign Reading [...] Mass Index 29.26 01/28/2025 11:16 AM EST Plan of Treatment Upcoming Encounters Date Type Department Care Team (Late st Contact Info) Description 02/01/2025 10:00 AM EDT Telemedicine Visit [address] [phone] Ewelina Hargrove PA-C [address] [place] [address] Jael Bee [address] [place] [address] Health Maintenance Due Date Last Done Comments Dental Examination 1945 Depression Monitoring 07/03/2024 04/02/2024 , 07/30/2023, 02/20/2023, Additional history exists Diabetes Microalbumin (w/Creatinine) 09/26/2024 09/26/2023, 02/09/2021, 07/04/2020, Additional history exists Alcohol and Drug Screen 11/25/2024 04/02/20 24, 02/20/2023, 04/19/2022, Additional history exists Imm-Zoster, Recombinant (2 of 2) 01/19/2025 11/24/2024 Retinopathy Screening 03/26/2025 03/26/2024 (Managed by Outside Provider), 03/26/2024, 03/26/2024 Falls Prevention 04/02/2025 04/02/2024, , 02/09/2021 Diabetes HbA1c 05/24/2025 11/24/2024, 05/0 07/2024, 09/26/2023, Additional history exists [id number] ( season) 2025 03/04/2021, 01/28/2021 Postponed from 07/26/2024 (Patient postponement) Diabetes Foot Exam 11/24/2025 11/24/2024, 0 03/23/2024, 01/02/2024, Additional history exists Lipid Screening 11/24/2025 11/24/2024, 11/0 12/2022, 06/06/2022, Additional history exists Medicare Annual Wellness Visit 11/24/2025 11/24/2024, 11/24/2024, 04/30/2018 Serum Creatinine 12/19/2025 12/19/2024, , 11/24/2024, Additional history exists Tobacco Screening 01/28/2026 01/28/2025 Imm-DTaP/Tdap/Td (3 - Td or Tdap) 07/20/2033 07/20/2023, 02/19/2017 Hepatitis C Screening Completed 06/19/2016 Imm-Pneumococcal 65+ Completed 04/30/2018, 02/19/2017, 09/10/2006 Imm-Influenza Completed 11/24/2024, 09/25, 11/01/2017 Goals Goal Patient Goal Type Associated Problems Recent Progress Patient-Stated? Author Blood Pressure < 130/80 Blood Pressure Essential hypertension 126/62(2024 11:16 AM EST) No Gricelda Arredondo, Norman Procedures Procedure Name Priority Date/Time Associated Diagnosis Comments CARD SCANNED DOCUMENT 01/09/2025 3:00 AM EST IMAGING SCANNED DOCUMENT 01/09/2025 3:00 AM EST IMAGING SCANNED DOCUMENT 01/09/2025 3:00 AM EST CARD SCANNED DOCUMENT 12/11/2024 3:00 AM EST IMAGING SCANNED DOCUMENT 12/11/2024 3:00 AM EST OTHER ORDERS SCANNED DOCUMENT 12/02/2024 3:00 AM EST BLOOD COUNT COMPLETE AUTO&AUTO DIFRNTL WBC Routine 11/24/2024 11:16 AM EST Annual physical exam PROSTATE SPECIFIC ANTIGEN, FREE AND TOTAL Routine 11/24/2024 11:16 AM EST Dysuria ASSAY OF BLOOD/URIC ACID Routine 11/24/2024 11:16 AM EST H/O: gout LIPID PANEL Routine 11/24/2024 11:16 AM EST Essential hypertension Dyslipidemia DM (diabetes mellitus), type 2 with neurological complications ([facility]CC-CMS) On statin therapy Annual physical exam TSH W/RFLX FREE T4 Routine 11/24/2024 11 :16 AM EST Annual physical exam COMPREHENSIVE METABOLIC PANEL Routine 11/24/2024 11:16 AM EST DM (diabetes mellitus), type 2 with neurological complications (HCC-CMS) On statin therapy Annual physical exam HGBA1C W/MPG Routine 11/24/2024 11:16 AM EST DM (diabetes mellitus), type 2 with neurological complications ([facility]CC-CMS) Annual physical exam URINALYSIS, MULTISTIX (POCT) Routine 11/24/2024 10:22 AM EST Dysuria EYE EXAM 03/26/2024 3:00 AM EDT REFERRAL TO PODIATRY Routine 03/23/2024 3:00 AM EDT Onychomycosis MICROALBUMIN/CREATINI NE RATIO, URINE, RANDOM Routine 09/26/2023 9:06 AM EDT Type 2 diabetes mellitus without complication, without long-term current use of insulin ([facility]) HEPATITIS A,B,C PANEL Routine 06/19/2016 12:10 PM EDT Preventative health care from Last 3 Months or Most Recently Relevant to Health Maintenance Results * CARD SCANNED DOCUMENT (01/09/2025 3:00 AM EST) Only the most recent of2 resultswithin the time period is included. 01/09/2025 3:00 AM EST Ashley Belinda VICE PRESIDENT QUALITY SCAN ECGS Final Res ult * IMAGING SCANNED DOCUMENT (01/09/2025 3:00 AM EST) Only the most recent of3 resultswithin the time period is included. 01/09/2025 3:00 AM EST Stefania Hummelinda VICE PRESIDENT QUALITY SCAN IMAGING Final Res ult * OTHER ORDERS SCANNED DOCUMENT (12/02/2024 3:00 AM EST) 12/02/2024 3:00 AM EST Ewelina Hargrove PA-C SCAN OTHER ORDERS Final Res ult * (ABNORMAL) HGBA1C W/MPG (11/24/2024 11:16 AM EST) HEMOGLOBIN A1C 6.3(H) <5.7 % of total Hgb [facility] Comment: For someone without known diabetes, a hemoglobin A1c value between 5.7% and 6.4% is consistent with prediabetes and should be confirmed with a follow-up test. For someone with known diabetes, a value <7% indicates that their diabetes is well controlled. A1c targets should be individualized based on duration of diabetes, age, comorbid conditions, and other considerations. This assay result is consistent with an increased risk of diabetes. Currently, no consensus exists regarding use of hemoglobin A1c for diagnosis of diabetes for children. MEAN PLASMA GLUCOSE 147 mg/dL (calc) [facility] Blood Blood / Unknown 11/24/2024 1 1:16 AM EST 11/24/2024 11:19 AM EST Narrative [employer] - 11/26/2024 10:53 AM EST FASTING:YES PATIENT UNABLE TO VOID; ADVISED TO RETURN FOR COLLECTION. us Ewelina Hargrove PA-C LAB - BLOOD DRAW Edited Res t - Final Performing Organization Address City/[facility]/ZIP Co de Phone Number [employer] [address] [place] [phone], [employer] [address] [place] [phone] * TSH W/RFLX FREE T4 (11/24/2024 11:16 AM EST) TSH W/REFLEX TO FT4 2.17 0.40 - 4.50 mIU/L [facility] Blood Blood / Unknown 11/24/2024 1 1:16 AM EST 11/24/2024 11:19 AM EST Narrative [employer] - 11/26/2024 10:53 AM EST FASTING:YES PATIENT UNABLE TO VOID; ADVISED TO RETURN FOR COLLECTION. us Ewelina Hargrove PA-C LAB - BLOOD DRAW Edited Res ult - Final Performing Organization Address City/[facility]/ZIP Co de Phone Number [employer] [address] [place] [phone], [employer] [address] [place] [phone] * PROSTATE SPECIFIC ANTIGEN, FREE AND TOTAL (11/24/2024 11:16 AM EST) TOTAL PSA 3.4 < OR = 4.0 ng/mL [facility] FREE PSA 1.5 ng/mL [facility] [employer] [facility] % FREE PSA 44 >25 % (calc) [facility] Comment: PSA(ng/mL) ?Free PSA(%) ? Estimated(x) Probability ? of Cancer(as%) 0-2.5 ?(*) ? Approx. 1 2.6-4.0(1) ? 0-27(2) ? 24(3) 4.1-10(4) ?0-10 ?56 ? 11-15 ? 28 ? 16-20 ? 20 ? 21-25 ? 16 ? >or =26 ? 8 >10(+) ? N/A ?>50 References:(1)Roxy.:Urology 60: 469-474 (2002) ? (2)Rhona shoemaker al.:J.Urol 168: 922-925 (2002) ?Free PSA(%) ?? Sensitivity(%) ??Specificity(%) ?< or = 25 ?85 ?19 ?< or = 30 ?93 ? 9 ? (3)Rhona et al.:CARMELO 277: 2016-0601 (1996) ? (4)Catalona et al.:CARMELO 279: 5880-0421 (1997) (x)These estimates vary with age, ethnicity, family ?? history and SEDRICK results. (*)The diagnostic usefulness of % Free PSA has not been ?? established in patients with total PSA below 2.6 ng/mL (+)In men with PSA above 10 ng/mL, prostate cancer risk is ?? determined by total PSA alone. The Total PSA value from this assay system is standardized against the equimolar PSA standard. The test result will be approximately 20% higher when compared to the WHO-standardized Total PSA (Siemens assay). Comparison of serial PSA results should be interpreted with this fact in mind. PSA was performed using the [place] Immunoassay method. Values obtained from different assay methods cannot be used interchangeably. PSA levels, regardless of value, should not be interpreted as absolute evidence of the presence or absence of disease. Blood Blood / Unknown 11/24/2024 1 1:16 AM EST 11/24/2024 11:19 AM EST Narrative [employer] - 11/26/2024 10:53 AM EST FASTING:YES PATIENT UNABLE TO VOID; ADVISED TO RETURN FOR COLLECTION. us Ewelina Hargrove PA-C LAB - BLOOD DRAW Final Resu lt [employer] [address] [place] [phone], [employer] [place] [employer] [address] [place] [phone] * (ABNORMAL) BLOOD COUNT COMPLETE AUTO&AUTO DIFRNTL WBC (11/24/2024 11:16 AM EST) WHITE BLOOD CELL COUNT 6.4 3.8 - 10.8 Thousand/ uL [facility] RED BLOOD CELL COUNT 4.60 4.20 - 5.80 Million/u L [facility] HEMOGLOBIN 12.9(L) 13.2 - 17.1 g/dL [facility] HEMATOCRIT 39.8 38.5 - 50.0 % [facility] MCV 86.5 80.0 - 100.0 fL [facility] MCH 28.0 27.0 - 33.0 pg [facility] MCHC 32.4 32.0 - 36.0 g/dL [facility] Comment: For adults, a slight decrease in the calculated MCHC value (in the range of 30 to 32 g/dL) is most likely not clinically significant; however, it should be interpreted with caution in correlation with other red cell parameters and the patient's clinical condition. RDW 12.2 11.0 - 15.0 % [facility] PLATELET COUNT 307 140 - 400 Thousand/ uL [facility] MPV 9.4 7.5 - 12.5 fL [facility] ABSOLUTE NEUTROPHILS 4,685 1,500 - 7,800 cells/uL [facility] ABSOLUTE LYMPHOCYTES 1,075 850 - 3,900 cells/uL [facility] ABSOLUTE MONOCYTES 448 200 - 950 cells/uL [facility] ABSOLUTE EOSINOPHILS 141 15 - 500 cells/uL [facility] ABSOLUTE BASOPHILS 51 0 - 200 cells/uL [facility] NEUTROPHILS PCT 73.2 % [facility] [employer] LYMPHOCYTES 16.8 % [facility] [employer] [facility] MONOCYTES 7.0 % [facility] [employer] [facility] EOSINOPHILS 2.2 % [facility] [employer] [facility] BASOPHILS 0.8 % [employer] DIAG [employer] [facility] Blood Blood / Unknown 11/24/2024 1 1:16 AM EST 11/24/2024 11:19 AM EST Narrative [employer] - 11/26/2024 10:53 AM EST FASTING:YES PATIENT UNABLE TO VOID; ADVISED TO RETURN FOR COLLECTION. us Ewelina Hargrove PA-C LAB - BLOOD DRAW Edited Res ult - Final [employer] [address] [address], [employer] [address] [phone] * (ABNORMAL) ASSAY OF BLOOD/URIC ACID (11/24/2024 11:16 AM EST) URIC ACID 3.8(L) 4.0 - 8.0 mg/dL [facility] Comment: Therapeutic target for gout patients: <6.0 mg/dL ?? Blood Blood / Unknown 11/24/2024 1 1:16 AM EST 11/24/2024 11:19 AM EST Narrative [employer] [facility] - 11/26/2024 10:53 AM EST FASTING:YES PATIENT UNABLE TO VOID; ADVISED TO RETURN FOR COLLECTION. Ewelina Hargrove PA-C LAB - BLOOD DRAW Edited Res ult - Final [facility] [address] [address], [employer] [address] [phone] * (ABNORMAL) LIPID PANEL (11/24/2024 11:16 AM EST) Pathologist [facility] CHOLESTEROL, TOTAL 91 <200 mg/dL [facility] HDL CHOLESTEROL 36(L) > OR = 40 mg/dL [facility] TRIGLYCERIDES 57 <150 mg/dL [facility] LDL-CHOLESTEROL 42 99 mg/dL (calc) [employer] [facility] Comment: Reference range: <100 Desirable range <100 mg/dL for primary prevention; ?? <70 mg/dL for patients with CHD or diabetic patients with > or = 2 CHD risk factors. LDL-C is now calculated using the Saeed calculation, which is a validated novel method providing better accuracy than the Friedewald equation in the estimation of LDL-C. Jesus SS et al. CARMELO. 2013;310(19): 8836-0556 (http://education.KiteReaders/faq/PVG442) CHOL/HDLC RATIO 2.5 <5.0 (calc) [employer] [facility] NON-HDL CHOLESTEROL 55 <130 mg/dL (calc) [facility] Comment: For patients with diabetes plus 1 major ASCVD risk factor, treating to a non-HDL-C goal of <100 mg/dL (LDL-C of <70 mg/dL) is considered a therapeutic option. Blood Blood / Unknown 11/24/2024 1 1:16 AM EST 11/24/2024 11:19 AM EST Narrative [employer] [facility] - 11/26/2024 10:53 AM EST FASTING:YES PATIENT UNABLE TO VOID; ADVISED TO RETURN FOR COLLECTION. us Ewelina Hargrove PA-C LAB - BLOOD DRAW Final Resu lt [employer] [address] [address], [employer] [address] [phone] * (ABNORMAL) COMPREHENSIVE METABOLIC PANEL (11/24/2024 11:16 AM EST) GLUCOSE 113(H) 65 - 99 mg/dL [facility] Comment: ?Fasting reference interval For someone without known diabetes, a glucose value between 100 and 125 mg/dL is consistent with prediabetes and should be confirmed with a follow-up test. UREA NITROGEN (BUN) 15 7 - 25 mg/dL [facility] CREATININE (blood) 0.69(L) 0.70 - 1.28 mg/dL [facility] EGFR 95 > OR = 60 mL/min/1. 73m2 [facility] BUN/CREATININE RATIO 22 6 - 22 (calc) [facility] SODIUM 139 135 - 146 mmol/L [facility] POTASSIUM 3.8 3.5 - 5.3 mmol/L [facility] CHLORIDE 104 98 - 110 mmol/L [facility] CARBON DIOXIDE 28 20 - 32 mmol/L [facility] CALCIUM 9.3 8.6 - 10.3 mg/dL [facility] PROTEIN, TOTAL 6.8 6.1 - 8.1 g/dL [facility] ALBUMIN 4.2 3.6 - 5.1 g/dL [facility] GLOBULIN 2.6 1.9 - 3.7 g/dL (calc) [facility] [facility] ALBUMIN/GLOBULI N RATIO 1.6 1.0 - 2.5 (calc) [facility] BILIRUBIN, TOTAL 1.6(H) 0.2 - 1.2 mg/dL [facility] ALKALINE PHOSPHATASE 98 35 - 144 U/L [facility] AST 15 10 - 35 U/L [facility] ALT 11 9 - 46 U/L [facility] Blood Blood / Unknown 11/24/2024 1 1:16 AM EST 11/24/2024 11:19 AM EST Narrative [facility] - 11/26/2024 10:53 AM EST FASTING:YES PATIENT UNABLE TO VOID; ADVISED TO RETURN FOR COLLECTION. Ewelina Hargrove PA-C LAB - BLOOD DRAW Edited Res ult - Final Performing Organization Address City/State/[facility] Co de Phone Number [facility] [address] [address], [facility] [address] [phone] * URINALYSIS, MULTISTIX (POCT) (11/24/2024 10:22 AM EST) URINE GLUCOSE NEGATIVE NEGATIVE [facility]- BACK OFFICE POCT URINE BILIRUBIN NEGATIVE NEGATIVE [facility]- BACK OFFICE POCT URINE KETONES NEGATIVE NEGATIVE [facility] BACK OFFICE POCT URINE SPECIFIC GRAVITY 1.020 <=1.005 - >=1.030 [facility] POCT URINE BLOOD NEGATIVE NEGATIVE [facility] BACK OFF[facility] POCT URINE PH 5.5 5.0 - 8.5 [facility] POCT URINE PROTEIN Negative Negative [facility] POCT URINE UROBILINOGEN 1.0 0.2 - 1.0 E.U./dL [facility] POCT URINE NITRITE NEGATIVE NEGATIVE [facility] POCT URINE LEUKOCYTES NEGATIVE NEGATIVE [facility] POCT URINE COLOR YELLOW STRAW, YELLOW [facility] POCT ODOR URINE Normal Normal [facility] POCT CLARITY OF URINE CLEAR CLEAR [facility] BACK OFF[facility] POCT Urine Urine specimen / Unknown 11/24/2024 10:22 AM EST us Ewelina Beena PA-C LAB - NO BLOOD DRAW Final R esult [facility] POCT * EYE EXAM (03/26/2024 3:00 AM EDT) 03/26/2024 3:00 AM EDT Stefania ARROYO OTHER Final Res ult * REFERRAL TO PODIATRY (03/23/2024 3:00 AM EDT) 03/23/2024 3:00 AM EDT Stefania ARROYO REFERRAL Edited Re sult - Final * MICROALBUMIN/CREATININE RATIO, URINE, RANDOM (09/26/2023 9:06 AM EDT) CREATININE, RANDOM URINE 137 20 - 320 mg/dL [facility] MICROALBUMIN 2.7 mg/dL [employer] [facility] Comment: Reference Range Not established MICROALBUMIN/CREA TININE RATIO, RANDOM URINE 20 <30 mcg/mg creat [facility] Comment: The ADA defines abnormalities in albumin excretion as follows: Albuminuria Category ?Result (mcg/mg creatinine) Normal to Mildly increased ?? <30 Moderately increased ? 30-299 Severely increased ? > OR = 300 The ADA recommends that at least two of three specimens collected within a 3-6 month period be abnormal before considering a patient to be within a diagnostic category. Urine Urine specimen / Unknown 09/26/2023 9:06 AM EDT 09/26/2023 9:07 AM EDT Narrative [employer] [facility] - 09/27/2023 5:02 PM EDT FASTING:NO Stefania ARROYO LAB - NO BLOOD DRAW Final Result [facility] [address] [address], [facility] [address] [phone] * (ABNORMAL) HEPATITIS A,B,C PANEL (06/19/2016 12:10 PM EDT) HEPATITIS B SURFACE ANTIBODY NEGATIVE NEGATIVE [facility] HEPATITIS B SURFACE ANTIGEN NEGATIVE NEGATIVE [facility] HEPATITIS C VIRUS DIAGNOSTIC NEGATIVE NEGATIVE [facility] HEPATITIS A ANTIBODY TOTAL POSITIVE(A) NEGATIVE [facility] HEPATITIS B CORE ANTIBODY NEGATIVE NEGATIVE [facility] Blood specimen (specimen) Blood / Unknown 06/19/2016 12:10 PM EDT 06/19/2016 12:[address] [facility] - 06/19/2016 7:36 PM EDT [address] [address] PT ID [id number] ORD# [id number] Stefania MORRISONP LAB - BLOOD DRAW Edited R esult - Final [facility] [address] [place] [address], from Last 3 Months or Most Recently Relevant to Health Maintenance Insurance [employer] Member Subscriber Plan / Payer (Ef fective 2017-Present) Name:Barak Giordano Relation to Subscriber:Self Name:GiordanoBarak bowman Payer ID:[id number] Group ID:Not on file Type:Indemnity Address: [address] Member Subscriber Plan / Payer (Ef fective 2022-Present) Name:Barak Giordano Relation to Subscriber:Self Name:Barak Giordano Payer ID:[id number] Group ID:Not on file Type:Indemnity Address: [facility] [address] [address] [facility] Care Teams Scrap [employer]er Relationship Specialty Start Date End Date Ewelina Hargrove PA-C [address] [place] [id number] PCP - General Primary Care 06/01/24
[2025-01-31 23:51] VITALS: BP 142/71; PULSE 73; RESP 18; TEMP 36.7; O2SAT 95
[2025-01-31 23:52] VITALS: BP 142/71; PULSE 73; RESP 18; TEMP 36.7; O2SAT 95
== END 2025-01-31 23:54 | disposition home or self-care (01) ==
PROVIDERS: Emergency Provider Internal Medicine
DX: S89.92XA Unspecified injury of left lower leg, initial encounter (principal); S80.212A Abrasion, left knee, initial encounter; M25.562 Pain in left knee; M25.511 Pain in right shoulder; W18.30XA Fall on same level, unspecified, initial encounter; Y93.9 Activity, unspecified; Y92.9 Unspecified place or not applicable; Y99.8 Other external cause status
CPT/HCPCS: 73030; 99283; 99284

== ENCOUNTER → 2025-01-31 22:27 | Outpatient (BNV) | payer OTHER, SELFPAY | PROVIDERS: Emergency Provider Internal Medicine; Visit Provider Radiology Neuroradiology | DX: M19.011 Primary osteoarthritis, right shoulder (principal) | CPT/HCPCS: 73030 ==